=== PATIENT | female | born 1935 | race Caucasian/White ===

== ENCOUNTER 2017-07-16 15:37 | Inpatient (IN) | payer OTHER ==
[~2017-07-16] VITALS: Ht 160 cm; Wt 74.4 kg
[~2017-07-16 15:37] MED LIST: ARTHROTEC 75 T1 EAC1 PO; ATENOLOL 25 MG25 M1 PO; COUMADIN 5 MG TA5 M1 PO; DILTIAZEM 24HR180 M2 PO; DILTIAZEM 24HR240 M2 PO; FLAGYL500 MG PO; GABAPENTIN600 M1 PO; LASIX 20 MG TAB20 MG PO; LEVOTHYROXINE0.05 MG PO; LISINOPRIL-HCT1 EAC2 PO; MIRALAX17 GM PO; NEURONTIN 300300 M1 PO; SYNTHROID125 MC1 PO; Synthroid PO; TEMOVATE30 GM TOP; TENORMIN50 MG PO; TRAMADOL 50 MG50 MG PO
[2017-07-16 15:41] VITALS: BP 138/66
[2017-07-16 16:00] LABS: ABSOLUTE BASOPHILS 0.1 thou/uL (0.0-0.2); ABSOLUTE EOSINOPHILS 0.2 thou/uL (0.0-0.7); ABSOLUTE LYMPHOCYTES 1.1 thou/uL (0.8-5.3); ABSOLUTE MONOCYTES 0.7 thou/uL (0.0-1.2); ABSOLUTE NEUTROPHILS 8.2 thou/uL (1.6-8.1); BASOPHILS 0.8 %; EOSINOPHILS 2.4 %; HEMATOCRIT 38.5 % (37.0-47.0); HEMOGLOBIN 12.9 gm/dL (12.0-15.0); LYMPHOCYTES 10.4 %; MCH 34.1 pg (26.0-34.0); MCHC 33.4 g/dL (28.0-37.0); MCV 102.1 fL (80.0-100.0); MONOCYTES 6.7 %; MPV 8.9 fl. (7.2-11.1); NUCLEATED RBCS 0 /100WBC; PLATELET COUNT* 160 thou/uL (150-400); POLYS 79.7 %; RBC 3.77 mil/uL (4.20-5.00); RDW-CV 15.7 % (10.5-14.5); WBC 10.2 thou/uL (4.0-11.0)
[2017-07-16] MEDS ORDERED: KLOR-CON 1010 MEQ PO (16:00)
[2017-07-16] MEDS ORDERED: FISH OIL 1,001000 M2 PO (16:01)
[2017-07-16] MEDS ORDERED: PROBIOTIC1 EAC4 PO (16:01)
[2017-07-16] MEDS ORDERED: UNICOMPLEX M TA1 TA1 PO (16:02)
[2017-07-16] MEDS ORDERED: CALCIUM 500 +1 EAC5 PO (16:02)
[2017-07-16] MEDS ORDERED: GREEN TEA1 EACH PO (16:02)
[2017-07-16] MEDS ORDERED: COQ-10100 MG PO (16:03)
[2017-07-16] MEDS ORDERED: VITAMIN B-1100 M1 PO (16:03)
[2017-07-16] MEDS ORDERED: [UNRECOGNIZED DRUG - OTHER] PO (16:03)
[2017-07-16] MEDS ORDERED: MAGOX 400400 MG PO (16:04)
[2017-07-16 16:11] LABS: ANION GAP 10 mmol/L (7-16); BUN 24 mg/dL (7-18); CALCIUM 9.4 mg/dL (8.5-10.1); CHLORIDE 103 mmol/L (98-107); CO2 28 mmol/L (21-32); CREATININE 1.1 mg/dL (0.6-1.3); GLUCOSE 139 mg/dL (70-99); POTASSIUM 3.6 mmol/L (3.5-5.1); SODIUM 141 mmol/L (136-145)
[2017-07-16 16:14] LABS: APTT 44.1 Seconds (25.0-31.3); INR 4.2; PROTIME 40.4 Seconds (9.20-11.50)
[2017-07-16 16:18] LABS: ALBUMIN 3.6 g/dL (3.4-5.0); ALKALINE PHOSPHATASE 151 U/L (46-116); LIPASE 108 U/L (73-393); SGOT 36 U/L (15-37); SGPT 39 U/L (30-65); TOTAL BILIRUBIN 0.9 mg/dL (<0.1-1.0); TOTAL PROTEIN 6.8 g/dL (6.4-8.2); TROPONIN-I LEVEL <0.06 ng/mL (<0.06)
[2017-07-16 17:30] LABS: URINE BILIRUBIN NEGATIVE (Negative); URINE BLOOD NEGATIVE (Negative); URINE CLARITY CLEAR; URINE COLOR YELLOW; URINE GLUCOSE-RANDOM NEGATIVE (Negative); URINE KETONES NEGATIVE (Negative); URINE LEUKOCYTES NEGATIVE (Negative); URINE NITRITE NEGATIVE (Negative); URINE PROTEIN NEGATIVE (Negative); URINE SPECIFIC GRAVITY 1.015 (1.005-1.030); URINE UROBILINOGEN 0.2 E.U./dl (0.2-1.0)
[2017-07-16 17:40] LABS: AMP/METHAMP Negative (Negative); BARBITURATES Negative (Negative); BENZODIAZEPINES Negative (Negative); COCAINE Negative (Negative); METHADONE Negative (Negative); OPIATES Negative (Negative); PCP Negative (Negative); THC Negative (Negative)
[2017-07-16 20:03] VITALS: BP 138/60
[2017-07-16 20:30] VITALS: BP 132/62; BP 147/79
[2017-07-16 20:31] VITALS: BP 140/92
[2017-07-16 20:32] VITALS: BP 157/97
[2017-07-16] MEDS ORDERED: NEURONTIN600 MG PO (20:32)
[2017-07-16] MEDS ORDERED: LISINOPRIL20 MG PO (20:34)
[2017-07-16 21:29] LABS: CALCIUM 9.1 mg/dL (8.5-10.1); CREATININE 1.1 mg/dL (0.6-1.3); MAGNESIUM 2.1 mg/dL (1.8-2.4); POTASSIUM 3.7 mmol/L (3.5-5.1)
[2017-07-17] VITALS (7 sets, daily range): BP systolic 76–165; BP diastolic 55–82
[2017-07-17 05:25] LABS: ABSOLUTE BASOPHILS 0.1 thou/uL (0.0-0.2); ABSOLUTE EOSINOPHILS 0.3 thou/uL (0.0-0.7); ABSOLUTE LYMPHOCYTES 1.6 thou/uL (0.8-5.3); ABSOLUTE MONOCYTES 0.8 thou/uL (0.0-1.2); ABSOLUTE NEUTROPHILS 4.3 thou/uL (1.6-8.1); BASOPHILS 0.8 %; EOSINOPHILS 4.6 %; HEMATOCRIT 36.4 % (37.0-47.0); HEMOGLOBIN 12.2 gm/dL (12.0-15.0); LYMPHOCYTES 22.8 %; MCH 33.9 pg (26.0-34.0); MCHC 33.6 g/dL (28.0-37.0); MONOCYTES 11.1 %; MPV 9.1 fl. (7.2-11.1); NUCLEATED RBCS 0 /100WBC; PLATELET COUNT* 151 thou/uL (150-400); POLYS 60.7 %; RDW-CV 15.7 % (10.5-14.5); WBC 7.1 thou/uL (4.0-11.0)
[2017-07-17 05:35] LABS: CALCIUM 8.7 mg/dL (8.5-10.1)
[2017-07-17 05:38] LABS: POTASSIUM 4.8 mmol/L (3.5-5.1)
--- NOTE | 2017-07-17 14:38 | EKG ---
[place] [address] ELECTROCARDIOGRAM REPORT Name: FOURNIERMONICA TYSON Room: [address] IN M.R.#: [id number] Admission: 07/16/17 Attend Phys: Maria Esther Centeno Discharge: 07/17/17 Date of : 33 Report #: [id number] THIS REPORT FOR: //name// [facility] ED Test Date: 2017-07-16 Test Time: 19:42:30 Pat Name: MONICA FOURNIER Department: Room: [facility] Gender: F Probation Agent: CHRISTOPHER : 1935 Requested By: Noreen Lin Order Number: [id number] MD: Steve Gaming Measurements Intervals [place] Rate: 86 P: MD: QRS: 89 QRSD: 92 T: 30 QT: 375 QTc: 449 Interpretive Statements Atrial fibrillation Borderline right axis deviation Borderline ST depression, diffuse leads Baseline wander in lead(s) V5 Compared to ECG 06/24/2015 17:03:49 ST (T wave) deviation now present Ventricular premature complex(es) no longer present Electronically Signed On 07-17-2017 14:37:58 COMPUTER AIDED DESIGN DRAFTER by Steve Gaming [email or web address] <ELECTRONICALLY SIGNED> By: Steve Gaming MD, FACC 07/17/17 1437 41 41 Steve Gaming MD, FAC /EPI
--- NOTE | 2017-07-20 09:49 | CON ---
[address] [address] CONSULTATION Name: MONICA FOURNIER Room: [address] IN M.R.#: [id number] Admission: 07/16/17 Attend Phys: Maria Esther Centeno Discharge: 07/17/17 Date of : 33 Report #: [id number] THIS REPORT FOR: //name// CC: Josh Saucedo PRIMARY CARE PHYSICIAN: Dr. Josh Townsend. PRODUCE WRAPPER: Dr. Audi Mtz. CHIEF COMPLAINT: Shortness of breath. HISTORY OF PRESENT ILLNESS: The patient is an 81-year-old female with a history of rate controlled atrial fibrillation, presented with shortness of breath and apparently has had some presyncope. Her blood pressure was elevated at home. She denies palpitations, heart racing or skipping. She is as noted above in persistent atrial fibrillation. She denies neuro symptoms, slurred speech, numbness or weakness. She was evaluated with a CT scan of the chest to rule out pulmonary embolus and pulmonary pathology, which was unremarkable and negative for pulmonary embolus. She has ruled out for an acute myocardial infarction. With her shortness of breath, she denies chest pain or pressure. She was actually scheduled for an outpatient Lexiscan stress test next week. In addition to her atrial fibrillation, she has high blood pressure, but she is not diabetic and she does not have high cholesterol. PVD: Denies any history of carotid vascular disease or peripheral vascular disease. HOME MEDICATIONS: Atenolol 50 mg p.o. b.i.d., diclofenac p.r.n., Lasix 40 mg daily, Synthroid 112 mcg daily, lisinopril 20 mg p.o. b.i.d., potassium chloride 10 mEq daily, warfarin 5 mg daily, CoQ10, vitamin B, gabapentin. REVIEW OF SYSTEMS: CENTRAL NERVOUS SYSTEM: No seizure or paralysis. GENERAL: No weight loss or fevers. RESPIRATORY: Positive shortness of breath, no cough, no sputum production. No asthma. CARDIOVASCULAR: No PND, no edema. ENDOCRINE: Positive thyroid disease. There is diabetes. GENITOURINARY: No dysuria or hematuria. HEMATOLOGIC: Positive anemia. ALLERGIES: No seasonal allergies. [place] [address] CONSULTATION Name: MONICA FOURNIER Room: [address]#: [id number] Admission: 07/16/17 Attend Phys: Maria Esther Centeno Discharge: 07/17/17 Date of : 33 Report #: [id number] PSYCHIATRIC: No depression or anxiety. MUSCULOSKELETAL: Positive arthritis. SKIN: No rashes. EYES: She does use glasses: PHYSICAL EXAMINATION: VITAL SIGNS: Blood pressure is 167/78, pulse is 67. GENERAL: This is a pleasant elderly female. LUNGS: Clear to auscultation bilaterally. CARDIOVASCULAR: Irregular. I cannot hear a murmur. ABDOMEN: Nontender. EXTREMITIES: There is no peripheral edema. NEUROLOGIC: There are no focal deficits. PSYCHIATRIC: The patient has appropriate mood and affect. LABORATORY DATA: Electrocardiogram demonstrated atrial fibrillation, rate of 86. No diagnostic ST segment abnormalities. Two PVCs were noted. Hemoglobin is 12.2, white blood cell count 7.1, platelet count is 151,000. Her sodium is 143, potassium 4.8, chloride 107, BUN is 23, creatinine is 1.0. Troponin I was 0.06. There is no BNP. CTA was negative for pulmonary embolus. Chest x-ray reveals cardiomegaly without failure. CT of the brain, no evidence of intracranial hemorrhage or acute abnormality. IMPRESSION: 1. Dyspnea. I suspect this is multifactorial, but ruling out coronary artery disease with a stress test is appropriate, which can be done as an outpatient. She has ruled out for an acute infarction. 2. Chronic diastolic heart failure. She does not have evidence of volume overload on x-ray or CTA of the chest. I would continue with current dose of diuretics. 3. Hypertension. Her blood pressure is elevated, I would recommend increasing her atenolol to 75 mg dosing. This may improve her heart rate control and atrial fibrillation as well. FOLLOWUP: She will follow up with Dr. Mtz per routine. <ELECTRONICALLY SIGNED> By: Steve Gaming MD, FACC 07/20/17 0949 1035 1520Steve Gaming MD, FACC /nt
[2017-10-25] MEDS ORDERED: NORCO 5-325 TA1 EACH PO (09:26)
== END 2017-07-17 14:26 | disposition home health service (06) | DRG 309 ==
LOC: M.ERS 15:37 → M.2W 18:14 → M.TBA-ER 18:14 → M.2W 20:12
PROVIDERS: Physician Assistant; ADMIT Internal Medicine
DX: I49.9 Cardiac arrhythmia, unspecified (principal); I50.32 Chronic diastolic (congestive) heart failure; D68.69 Other thrombophilia; R55 Syncope and collapse; I10 Essential (primary) hypertension; Z96.643 Presence of artificial hip joint, bilateral; M19.90 Unspecified osteoarthritis, unspecified site; Z96.653 Presence of artificial knee joint, bilateral; I48.2 Chronic atrial fibrillation; Z91.040 Latex allergy status; Z88.8 Allergy status to other drugs, medicaments and biological substances

== ENCOUNTER → 2017-08-09 | Outpatient (CLI) | payer OTHER ==
[~2017-08-09] MED LIST changes: +ADULT LOW DOSE81 MG PO; +AMOXICILLIN 50500 MG PO; +ARICEPT 5 MG TAB5 MG PO; +ATENOLOL 100MG100 MG PO; +ATORVASTATIN CA40 MG PO; +CALCIUM 500 +1 EAC5 PO; +CARDURA4 MG PO; +COQ-10100 MG PO; +ELIQUIS2.5 MG PO; +FISH OIL 1,001000 M2 PO; +FLOXIN10 M1 OTIC; +GREEN TEA1 EACH PO; +KLOR-CON 1010 MEQ PO; +LISINOPRIL20 MG PO; +MAGOX 400400 MG PO; +NEURONTIN600 MG PO; +NORCO 5-325 TA1 EACH PO; +PROBIOTIC1 EAC4 PO; +PROTONIX40 M1 PO; +SYNTHROID150 MCG PO; +UNICOMPLEX M TA1 TA1 PO; +VITAMIN B-1100 M1 PO; +[UNRECOGNIZED DRUG - OTHER] PO
--- NOTE | 2017-08-09 18:04 | CARDNUC ---
[place] [address] CARDIAC NUCLEAR IMAGING REPORT Name: SHANTANUMONICA Mackenzie Room: [facility]#: [id number] Admission: 08/09/17 Attend Phys: Geoffrey Del Castillo, Discharge: Date of : 33 Date of Service: 08/09/17 1804 Report #: [id number] THIS REPORT FOR: //name// APPROVED REPORT Exam: Nuclear Stress Test Indication: Chest pain Patient Location: Out-Patient Stress Tech: Claudia Sutton Stress Nurse: Marylu Veras RN Ht: 5 ft 4 in Wt: 170 lbs BSA: 1.83 m2 BMI: 29.17 Medical History Medical History: HTN Medications: KCL, mg+, lisinopril, atenolol, furosemide, warfarin Allergies: No known drug allergies Cardiac Risk Factors: Age, HTN Exercise History: Sedentary Meds Held (24 hrs): atenolol Stress Test Details Stress Test: Pharmacologic stress testing performed using 0.4 mg of regadenoson per 5 mL given IV over 10 seconds. Reason for pharmacologic stress test: physical limitation. HR Resting HR: 78 bpm Max Heart Rate (APMHR): 138 bpm Max HR Achieved: 86 bpm Target HR (85% APMHR): 117 bpm % of APMHR: 62 Recovery HR: 83 bpm BP Resting BP: 148/93 mmHg Max BP: 140/73 mmHg ECG Resting ECG: Atrial Fibrillation Stress ECG: Atrial Fibrillation ST Change: None Arrhythmia: None Recovery ECG: Atrial Fibrillation Recovery ST Change: [place] [address] CARDIAC NUCLEAR IMAGING REPORT Name: MONICA FOURNIER Room: [facility]#: [id number] Admission: 08/09/17 Attend Phys: Geoffrey Del Castillo, Discharge: Date of : 33 Date of Service: 08/09/17 1804 Report #: [id number] Recovery Arrhythmia: None Clinical Reason for Termination: Completed protocol Stress Symptoms: None Exercise duration: 0 min sec Exercise capacity: 1.0 METs The patient had no significant symptoms with Lexiscan infusion. Stress ECG Conclusion The baseline 12-lead electrocardiogram showed atrial fibrillation with a controlled ventricular response rate. There were no significant ST or T wave abnormalities noted. EKGs obtained during and post Lexiscan stress show atrial fibrillation with no significant ST or T wave changes when compared to baseline. There were no significant stress-induced arrhythmias. NM EXAM: Myocardial Perfusion REST/STRESS Imaging Protocol: Rest Tc-99m/Stress Tc-99m 1 day Resting Data Rest SPECT myocardial perfusion imaging was performed in supine position 30 minutes following the intravenous injection of 11.2 mCi of Tc-99m Sestamibi. Time of rest injection: 1305 Time of rest imagin The images were gated to evaluate regional wall motion and calculate left ventricular ejection fraction. Administration Route: IV Administration Site: Right AC Pharmacologic Stress Pharmacologic stress test was performed by injecting Regadenoson 0.4 mg IV push followed by the intravenous injection of 32.8 mCi of Tc-99m Sestamibi. Time of stress injection: 1455 Time of stress imagin Administration Route: IV Administration Site: Right AC Heart Rate at time of stress injection: 86 bpm. Gated Stress SPECT was performed 40 minutes after stress injection. The images were gated to evaluate regional wall motion and calculate [place] [address] CARDIAC NUCLEAR IMAGING REPORT Name: MONICA FOURNIER Room: [facility]#: [id number] Admission: 08/09/17 Attend Phys: Geoffrey Del Castillo, Discharge: Date of : 33 Date of Service: 08/09/17 1804 Report #: [id number] Study Quality Study: Good Artifact: No artifact Study Data At rest, the left ventricular ejection fraction was 63%.. Post stress, the left ventricular ejection was 60%.. TID = 1.10. Perfusion Normal left ventricular perfusion. Wall Motion Normal left ventricular wall motion. Nuclear Conclusion ECG Findings: negative for ischemia Clinical Findings: negative for ischemia Nuclear Findings: negative for ischemia Exercise Capacity: not assessed Left Ventricular Function: normal Risk Study: low Myocardial perfusion images show no significant defects to suggest infarct or ischemia. Left ventricular systolic function is normal. His is a low risk study. <Conclusion> The baseline 12-lead electrocardiogram showed atrial fibrillation with a controlled ventricular response rate. There were no significant ST or T wave abnormalities noted. EKGs obtained during and post Lexiscan stress show atrial fibrillation with no significant ST or T wave changes when compared to baseline. There were no significant stress-induced arrhythmias. <ELECTRONICALLY SIGNED> By: Geoffrey Del Castillo MD, [facility] 08/09/171803 03 03 Geoffrey Del Castillo MD, FACC /INF
== END ==
LOC: M.NUC 07-14 10:36 → M.CRD 07-30 13:00 → M.NUC 07-30 13:00
DX: I10 Essential (primary) hypertension (principal)

== ENCOUNTER → 2017-09-23 | Outpatient (CLI) | payer OTHER | LOC: M.ULTRA 09:00 | DX: R19.09 Other intra-abdominal and pelvic swelling, mass and lump (principal) ==

== ENCOUNTER 2017-09-24 18:48 | Emergency (ER) | payer OTHER ==
[~2017-09-24] VITALS: Ht 160 cm; Wt 72.6 kg
[~2017-09-24 18:48] MED LIST changes: -ADULT LOW DOSE81 MG PO; -AMOXICILLIN 50500 MG PO; -ARICEPT 5 MG TAB5 MG PO; -ATENOLOL 100MG100 MG PO; -ATORVASTATIN CA40 MG PO; -CARDURA4 MG PO; -ELIQUIS2.5 MG PO; -FLOXIN10 M1 OTIC; -NORCO 5-325 TA1 EACH PO; -PROTONIX40 M1 PO; -SYNTHROID150 MCG PO
[2017-09-24] MEDS ORDERED: ELIQUIS2.5 MG PO (19:09)
[2017-09-24] MEDS ORDERED: AMOXICILLIN 50500 MG PO (19:37)
[2017-09-24] MEDS ORDERED: FLOXIN10 M1 OTIC (19:41)
[2017-09-24 19:56] VITALS: BP 117/70
[2017-10-25] MEDS ORDERED: NORCO 5-325 TA1 EACH PO (09:26)
== END 2017-09-24 19:56 | disposition home or self-care (01) ==
LOC: M.ERS 18:48
DX: H66.91 Otitis media, unspecified, right ear (principal); H60.91 Unspecified otitis externa, right ear; H72.91 Unspecified perforation of tympanic membrane, right ear; I10 Essential (primary) hypertension; I48.91 Unspecified atrial fibrillation; M19.90 Unspecified osteoarthritis, unspecified site

== ENCOUNTER → 2017-10-25 | Day surgery (SDC) | payer OTHER ==
[~2017-10-25] MED LIST changes: +ADULT LOW DOSE81 MG PO; +AMOXICILLIN 50500 MG PO; +ARICEPT 5 MG TAB5 MG PO; +ATENOLOL 100MG100 MG PO; +ATORVASTATIN CA40 MG PO; +CARDURA4 MG PO; +ELIQUIS2.5 MG PO; +FLOXIN10 M1 OTIC; +NORCO 5-325 TA1 EACH PO; +PROTONIX40 M1 PO; +SYNTHROID150 MCG PO
[2017-10-25 06:54] LABS: HEMATOCRIT 41.6 % (37.0-47.0); HEMOGLOBIN 13.8 gm/dL (12.0-15.0); MCH 33.6 pg (26.0-34.0); MCHC 33.2 g/dL (28.0-37.0); MCV 101.3 fL (80.0-100.0); MPV 9.1 fl. (7.2-11.1); RBC 4.1 mil/uL (4.20-5.00); RDW-CV 15.7 % (10.5-14.5); WBC 6.3 thou/uL (4.0-11.0)
[2017-10-25 07:03] LABS: CALCIUM 9.6 mg/dL (8.5-10.1); CREATININE 1.1 mg/dL (0.6-1.3); POTASSIUM 3.9 mmol/L (3.5-5.1)
--- NOTE | 2017-10-25 17:55 | EKG ---
[place] [address] ELECTROCARDIOGRAM REPORT Name: FOURNIER,MONICA M Room: [facility]#: [id number] Admission: 10/25/17 Attend Phys: Mackenzie Henriquez Discharge: Date of : 33 Report #: [id number] THIS REPORT FOR: //name// [facility] Test Date: 2017-10-25 Test Time: 07:25:24 Pat Name: MONICA FOURNIER Department: Room: Gender: F Bobbin Coil Winder: HIRAM : 1935 Requested By: Sabino Quick Order Number: [id number] Reading MD: Geoffrey Del Castillo Measurements Intervals [place] Rate: 65 P: ND: QRS: 55 QRSD: 101 T: 96 QT: 432 QTc: 450 Interpretive Statements Atrial fibrillation Probable LVH with secondary repol abnrm Compared to ECG 07/16/2017 19:42:30 ST (T wave) deviation no longer present 4 listed I don't believe so wide was going will increase the IV Abdomen: All was was going outpatient Electronically Signed On 10-25-2017 17:55:36 CDT by Geoffrey Del Castillo [email or web address] <ELECTRONICALLY SIGNED> By: Geoffrey Del Castillo MD, FACC 10/25/17 1755 0725 0725 Geoffrey Del Castillo MD, FAC /EPI
--- NOTE | 2017-11-03 13:41 | OP ---
[address] [address] OPERATIVE REPORT Name: MONICA FOURNIER Room: [facility]#: [id number] Admission: 10/25/17 Attend Phys: Mackenzie Henriquez Discharge: Date of : 33 Report #: [id number] THIS REPORT FOR: //name// CC: Cathie Townsend DATE OF SERVICE: 10/25/2017 PREOPERATIVE DIAGNOSIS: Right inguinal hernia. POSTOPERATIVE DIAGNOSIS: Right inguinal hernia. OPERATION: Laparoscopic repair of right inguinal hernia with mesh. SURGEON: Sabino Quick MD ANESTHESIA: General. ESTIMATED BLOOD LOSS: Minimal. SPECIMEN: None. DESCRIPTION OF PROCEDURE: After informed consent was obtained, the patient was brought to the operating room and placed supine. SCDs were placed and working, preoperative antibiotics were administered, general anesthesia was induced. The abdomen was prepped and draped in the usual sterile fashion. A 10 mm incision was made below the umbilicus. Fascia was incised on the right side. Spacemaker/dissector was inserted. The area was insufflated with CO2. Two 5 mm ports were placed in the midline. I dissected out medially at the pubic bone. I then dissected out laterally. I identified the round ligament. She had an indirect hernia and this was carefully peeled back. I then inserted a medium Bard 3DMax mesh. I secured it using a suture passer and 2-0 Ethibond suture in the midline to keep the mesh from moving. The area was then instilled with 10 mL of 0.5% Marcaine solution. The fascia at the umbilicus was closed with a [id number] 0 Vicryl. Skin was closed with 4-0 Monocryl. Incisions were sealed with Dermabond. COMPLICATIONS: None. DISPOSITION: The patient was taken to the recovery in satisfactory condition. <ELECTRONICALLY SIGNED> By: Sabino Quick MD 11/03/17 1341 0917 1036Sabino Quick MD /nt
== END | disposition home or self-care (01) ==
LOC: M.SUR 06:34
PROVIDERS: Surgery
DX: K40.90 Unilateral inguinal hernia, without obstruction or gangrene, not specified as recurrent (principal); I48.2 Chronic atrial fibrillation; Z79.899 Other long term (current) drug therapy; Z79.01 Long term (current) use of anticoagulants; Z98.890 Other specified postprocedural states

== ENCOUNTER → 2017-12-30 | Outpatient (CLI) | payer OTHER | LOC: M.MRI 13:07 | DX: M19.012 Primary osteoarthritis, left shoulder (principal); M75.52 Bursitis of left shoulder; M75.02 Adhesive capsulitis of left shoulder ==

== ENCOUNTER 2018-01-27 18:24 | Emergency (ER) | payer OTHER ==
[~2018-01-27] VITALS: Ht 160 cm; Wt 71.2 kg
[~2018-01-27 18:24] MED LIST changes: -ADULT LOW DOSE81 MG PO; -ARICEPT 5 MG TAB5 MG PO; -ATENOLOL 100MG100 MG PO; -ATORVASTATIN CA40 MG PO; -CARDURA4 MG PO; -PROTONIX40 M1 PO; -SYNTHROID150 MCG PO
[2018-01-27 19:04] LABS: ABSOLUTE BASOPHILS 0.1 thou/uL (0.0-0.2); ABSOLUTE EOSINOPHILS 0.3 thou/uL (0.0-0.7); ABSOLUTE LYMPHOCYTES 1.6 thou/uL (0.8-5.3); ABSOLUTE MONOCYTES 0.7 thou/uL (0.0-1.2); ABSOLUTE NEUTROPHILS 4.9 thou/uL (1.6-8.1); BASOPHILS 1.2 %; HEMATOCRIT 40.6 % (37.0-47.0); HEMOGLOBIN 13.6 gm/dL (12.0-15.0); LYMPHOCYTES 21.5 %; MCH 34.6 pg (26.0-34.0); MCHC 33.5 g/dL (28.0-37.0); MCV 103.3 fL (80.0-100.0); MONOCYTES 8.9 %; MPV 9.5 fl. (7.2-11.1); NUCLEATED RBCS 0 /100WBC; PLATELET COUNT* 128 thou/uL (150-400); POLYS 64.4 %; RBC 3.93 mil/uL (4.20-5.00); RDW-CV 14.7 % (10.5-14.5); WBC 7.6 thou/uL (4.0-11.0)
[2018-01-27 19:10] LABS: ANION GAP 4 mmol/L (7-16); BUN 26 mg/dL (7-18); CALCIUM 9.1 mg/dL (8.5-10.1); CHLORIDE 102 mmol/L (98-107); CO2 29 mmol/L (21-32); CREATININE 1.2 mg/dL (0.6-1.3); GLUCOSE 96 mg/dL (70-99); SODIUM 135 mmol/L (136-145)
[2018-01-27 19:17] LABS: ALBUMIN 3.6 g/dL (3.4-5.0); ALKALINE PHOSPHATASE 136 U/L (46-116); SGOT 39 U/L (15-37); SGPT 44 U/L (30-65); TOTAL BILIRUBIN 1.1 mg/dL (<0.1-1.0); TOTAL PROTEIN 6.9 g/dL (6.4-8.2); TROPONIN-I LEVEL <0.06 ng/mL (<0.06)
[2018-01-27 20:37] LABS: URINE BILIRUBIN NEGATIVE (Negative); URINE BLOOD NEGATIVE (Negative); URINE CLARITY CLEAR; URINE COLOR YELLOW; URINE GLUCOSE-RANDOM NEGATIVE (Negative); URINE KETONES NEGATIVE (Negative); URINE LEUKOCYTES-REFLEX NEGATIVE (Negative); URINE NITRITE-REFLEX NEGATIVE (Negative); URINE PROTEIN NEGATIVE (Negative); URINE SPECIFIC GRAVITY <= 1.005 (1.005-1.030); URINE UROBILINOGEN 0.2 E.U./dl (0.2-1.0)
[2018-01-27 21:24] VITALS: BP 165/100
--- NOTE | 2018-01-28 10:50 | EKG ---
[place] [address] ELECTROCARDIOGRAM REPORT Name: MONICA FOURNIER Room: [facility]#: [id number] Admission: 01/27/18 Attend Phys: Discharge: 01/27/18 Date of : 33 Report #: [id number] THIS REPORT FOR: //name// [facility] ED Test Date: 2018-01-27 Test Time: 18:34:09 Pat Name: MONICA FOURNIER Department: Room: Gender: F Heat Sealing Machine Operator: TEE : 1935 Requested By: Cathie Berg Order Number: [id number] MD: Suresh Castro Measurements Intervals [place] Rate: 79 P: OR: QRS: 103 QRSD: 153 T: -1 QT: 454 QTc: 521 Interpretive Statements Atrial fibrillation RBBB and LPFB Compared to ECG 10/25/2017 07:25:24 Left posterior fascicular block now present Right bundle-branch block now present Electronically Signed On 01-28-2018 10:49:50 CDT by Suresh Castro [email or web address] <ELECTRONICALLY SIGNED> By: Suresh Castro MD, [facility] 01/28/18 1049 1834 1834 Suresh Castro MD, [facility] /EPI
== END 2018-01-27 21:27 | disposition home or self-care (01) ==
LOC: M.ERS 18:24
PROVIDERS: Nurse Practitioner Family
DX: I10 Essential (primary) hypertension (principal); R42 Dizziness and giddiness; I48.91 Unspecified atrial fibrillation; M19.90 Unspecified osteoarthritis, unspecified site; Z96.643 Presence of artificial hip joint, bilateral; Z96.653 Presence of artificial knee joint, bilateral; Z88.8 Allergy status to other drugs, medicaments and biological substances

== ENCOUNTER 2018-01-28 22:05 | Inpatient (IN) | payer OTHER ==
[~2018-01-28] VITALS: Ht 160 cm; Wt 71.2 kg
[2018-01-28 22:19] VITALS: BP 201/123
[2018-01-28 22:40] LABS: ABSOLUTE BASOPHILS 0.1 thou/uL (0.0-0.2); ABSOLUTE EOSINOPHILS 0.4 thou/uL (0.0-0.7); ABSOLUTE LYMPHOCYTES 1.9 thou/uL (0.8-5.3); ABSOLUTE MONOCYTES 0.8 thou/uL (0.0-1.2); ABSOLUTE NEUTROPHILS 4.2 thou/uL (1.6-8.1); BASOPHILS 1.3 %; EOSINOPHILS 5.4 %; HEMATOCRIT 40.8 % (37.0-47.0); HEMOGLOBIN 13.6 gm/dL (12.0-15.0); LYMPHOCYTES 25.5 %; MCH 34.4 pg (26.0-34.0); MCHC 33.4 g/dL (28.0-37.0); MCV 102.9 fL (80.0-100.0); MONOCYTES 10.7 %; MPV 9.4 fl. (7.2-11.1); NUCLEATED RBCS 0 /100WBC; PLATELET COUNT* 133 thou/uL (150-400); POLYS 57.1 %; RBC 3.97 mil/uL (4.20-5.00); WBC 7.3 thou/uL (4.0-11.0)
[2018-01-28 22:49] LABS: APTT 31.6 Seconds (25.0-31.3); INR 1.2
[2018-01-28 22:54] LABS: ANION GAP 4 mmol/L (7-16); BUN 24 mg/dL (7-18); CALCIUM 9.5 mg/dL (8.5-10.1); CHLORIDE 103 mmol/L (98-107); CO2 31 mmol/L (21-32); CREATININE 1.2 mg/dL (0.6-1.3); GLUCOSE 105 mg/dL (70-99); POTASSIUM 3.8 mmol/L (3.5-5.1); SODIUM 138 mmol/L (136-145)
[2018-01-28 23:11] LABS: ALBUMIN 3.7 g/dL (3.4-5.0); ALKALINE PHOSPHATASE 150 U/L (46-116); CK-MB MASS 3.5 ng/mL (<0.5-3.6); NT-PRO BRAIN NAT PEPTIDE 2778 pg/mL (<300); SGOT 37 U/L (15-37); SGPT 41 U/L (30-65); TOTAL BILIRUBIN 0.8 mg/dL (<0.1-1.0); TOTAL PROTEIN 7.2 g/dL (6.4-8.2); TROPONIN-I LEVEL <0.06 ng/mL (<0.06)
[2018-01-29] VITALS (9 sets, daily range): BP systolic 133–187; BP diastolic 71–118
[2018-01-29 00:01] LABS: URINE BILIRUBIN NEGATIVE (Negative); URINE BLOOD TRACE (Negative); URINE CLARITY CLEAR; URINE COLOR YELLOW; URINE GLUCOSE-RANDOM NEGATIVE (Negative); URINE KETONES NEGATIVE (Negative); URINE LEUKOCYTES-REFLEX NEGATIVE (Negative); URINE NITRITE-REFLEX NEGATIVE (Negative); URINE PROTEIN NEGATIVE (Negative); URINE SPECIFIC GRAVITY <= 1.005 (1.005-1.030); URINE UROBILINOGEN 0.2 E.U./dl (0.2-1.0)
--- NOTE | 2018-01-29 02:19 | NUR ---
CALL TO DOCTOR NATAN REGAURDING BLOOD PRESSURE MED AND PATIENT'S HIGH BLOOD PRESSURE, SEE ORDERS.
--- NOTE | 2018-01-29 02:31 | NUR ---
PATIENT O2 FELL TO 88 ON ROOM AIR, PATIENT PLACED ON 2 LITERS NC. O2 LEVELS RETURNED TO NORMAL.
--- NOTE | 2018-01-29 03:14 | NUR ---
DOCTOR BENJAMIN NOTIFIED OF PATIENT'S BLOOD PRESSURE. DOCTOR GAVE ORDER TO NOT GIVE CARDIZEM AND GIVE HOME DOSE OF LISINOPRIL.
--- NOTE | 2018-01-29 05:03 | NUR ---
PATIENT IS RESTING IN BED, NO ACUTE CHANGES. PATIENT IS NOT SHOWING SIGNS OF DISTRESS. FALL PRECAUTIONS IN PLACE, BED ALARM ON, CALL LIGHT WITHIN REACH, HOURLY ROUNDING OBSERVED.
--- NOTE | 2018-01-29 09:22 | NUR ---
ASSUMED CARE OF PT THIS AM AROUND 07- SOCIAL SERVICE ASSISTANT IN PLACE ORDERED, TRACING A-FIB/RATE CONTROLED WITH BBB- UPON ASSESSMENT PT NOTED TO BE RESTING IN BED- PT A&O X1, OCCASIONAL APHASIA/WORD SEARCH NOTED- PLEASENTLY CONFUSED- CONTINENT VS INCONTINENT OF BOWEL AND BLADDER- EXT ASSIST WITH REDIRECTION NEEDED- ABDOMEN SOFT/ROUND/NON-TENDER, BS X4 QUADS- REPORTS LAST BM 01/28/18- IV NOTED TO RIGHT AC INTACT AND SL- TRACE EDEMA NOTED TO BLE- SET UP WITH MEALS WITH FAIR PO INTAKE NOTED- MRA/MRI COMPLETED THIS AM ORDERED, RESULTS IN View the Space TO REVIEW-SCD'S IN PLACE INDICATED- PT DENIES ANY C/O PAIN/DISCOMFORT- CALL LIGHT AND PERSONAL BELONGING WITH IN REACH- HOURLY ROUNDS IN PLACE R/T SAFETY/NEEDS- BED ALARM IN PLACE AND WORKING FOR PT SAFETY- ALL NEEDS MET AT THIS TIME-WCTM
[2018-01-29 09:42] LABS: CHOLESTEROL 163 mg/dL (<200); HDL CHOLESTEROL 51 mg/dL (>40); LDL CHOLESTEROL 100 mg/dL (<100); TC:HDL 3.2 Ratio (Not establshd); TRIGLYCERIDE 62 mg/dL (<150); VLDL 12 mg/dL (<40)
[2018-01-29 09:53] LABS: SERUM ASSESSMENT Clear
--- NOTE | 2018-01-29 12:41 | EKG ---
[place] [address] ELECTROCARDIOGRAM REPORT Name: MONICA FOURNIER Room: [address] IN [facility].#: [id number] Admission: 01/28/18 Attend Phys: Ronda Nugent MD Discharge: Date of : 33 Report #: [id number] THIS REPORT FOR: //name// [facility] ED Test Date: 2018-01-28 Test Time: 22:30:40 Pat Name: MONICA FOURNIER Department: Room: Gender: F Top Former: : 1935 Requested By: Yasir Peraza Order Number: [id number] MD: Steve Gaming Measurements Intervals [place] Rate: 75 P: [place]: QRS: 106 QRSD: 153 T: -19 QT: 472 QTc: 528 Interpretive Statements Pacemaker spikes or artifacts Atrial fibrillation RBBB and LPFB Compared to ECG 01/27/2018 18:34:09 No significant changes Electronically Signed On 01-29-2018 12:41:35 CDT by Steve Gaming [email or web address] <ELECTRONICALLY SIGNED> By: Steve Gaming MD, FAC 01/29/18 1241 29 29 Steve Gaming MD, [facility] /EPI
--- NOTE | 2018-01-29 16:32 | NUR ---
PT CATRINA RESTING IN BED- CLOTHING SUPERVISOR IN PLACE ORDERED, TRACING A-FIB WITH BBB- BOYFRIEND AT SIDE VISITING- PT CONTINUES TO BE CONFUSSED WITH SLOW RESPONSES NOTED- CAROTID US COMPLETED ORDERD WITH RESULTS SENT TO VIA YOU CALL WITH NO NEW ORDERS NOTED- HERE TO ASSESS THIS SHIFT WITH PLANS FOR F/U MRI ON WEDNESDAY, EEG AND ASPIRIN DAILY PER NOTES-ECHO ORDERED THIS SHIFT WELL- TROPS REMAIN NEGATIVE THIS SHIFT- BM REPORTED THIS SHIFT- WORKING WITH ALL THERAPIES THIS SHIFT ORDERED, TOLERATING WELL- IV REMIANS INTACT TO RIGHT AC, SL AND FLUSHING WELL- NO C/O PAIN/DISCOMFORT NOTED- GOOD PO INTAKE NOTED WITH MEASL- ST HERE TO ASSESS WITH NO SWALLOW ISSUES REPORTED- CALL LIGHT AND PERSONAL BELONGINGS WITH IN REACH- BED ALARM IN PLACE AND WORKING FOR PT SAFETY- ALL NEEDS MET AT THIS TIME-GUSTAVO
[2018-01-30] VITALS: BP 167/98
[2018-01-30 04:00] VITALS: BP 179/101
--- NOTE | 2018-01-30 04:39 | NUR ---
PT UNABLE TO STATE NAME. PT CONFUSED. UP WITH WALKER. AFIB ON THE MONITOR. VITALS WNL. SEE MAR. SEE CHARTING. FALL PRECAUTIONS IN PLACE. HOURLY ROUNDING FOR SAFETY. 02 AT HS FOR LOW O2 SAT.
[2018-01-30 06:10] LABS: HEMATOCRIT 39.5 % (37.0-47.0); HEMOGLOBIN 13.1 gm/dL (12.0-15.0); MCH 34.3 pg (26.0-34.0); MCHC 33.2 g/dL (28.0-37.0); MCV 103.1 fL (80.0-100.0); MPV 9.7 fl. (7.2-11.1); RBC 3.83 mil/uL (4.20-5.00); RDW-CV 14.9 % (10.5-14.5); WBC 7.5 thou/uL (4.0-11.0)
[2018-01-30 06:16] LABS: ALBUMIN 3.2 g/dL (3.4-5.0); CALCIUM 9.2 mg/dL (8.5-10.1); POTASSIUM 3.4 mmol/L (3.5-5.1); TOTAL BILIRUBIN 1.2 mg/dL (<0.1-1.0); TOTAL PROTEIN 6.2 g/dL (6.4-8.2)
[2018-01-30 07:48] VITALS: BP 148/59
--- NOTE | 2018-01-30 08:50 | NUR ---
ASSUMED CARE OF PT THIS AM AROUND 07- GREY IRON MOLDER IN PLACE ORDERED, TRACING A-FIB/RATE CONTROLED WITH BBB- UPON ASSESSMENT PT NOTED TO BE RESTING IN BED, EYES CLOSED- EASILY ARROUSABLE- PT REMAINS A&O X1 WITH NOTED CONFUSION, WORD FINDING HARD AT TIMES- ASSIST X1 WITH TRANSFERS USING RW- CONTINENT VS INCONTINENT OF BOWEL AND BLADDER- SET UP WITH MEALS REQUIRED WITH GOOD PO INTAKE NOTED- LCTA, RESP EVEN AND UN-LABORED- VSS, O2 SAT 97% ON RA- ABDOMEN SOFT/ROUND/NON-TENDER, BS X4 QUADS- LAST BM NOTED 01/29/18- IV NOTED TO RIGHT AC INTACT AND SL- PT DENIES ANY C/O PAIN/DISCOMFORT AT THIS TIME- CALL LIGHT AND PERSONLA BELONGINGS WITH IN REACH- HOURLY ROUNDS IN PLACE R/T SAFETY/NEEDS- BED ALARM IN PLACE AND WORKING FOR PT SAFETY- ALL NEEDS MET AT THIS TIME-WCTM
[2018-01-30 12:18] VITALS: BP 148/92
[2018-01-30 15:53] VITALS: BP 158/80
--- NOTE | 2018-01-30 16:05 | NUR ---
PT CURRENLTY RESTING IN BED SIDE RECLINER-CONFUSSION CONTIUES- ENGRAVING PLATE MAKER IN PLACE ORDERED, TRACING A-FIB/RATE CONTROLED- IV TO RIGHT AC INTACT AND SL, FLUSHING WELL- PT UP TO CHAIR THIS SHIFT WITH MEALS, TOLERATING WELL-GOOD PO INTAKE NTOED WITH MEALS-SON HERE TO VISIT ALONG WITH BOYFRIEND THIS SHIFT- MRI NOTED TO BE ORDERED FOR Wednesday01/31/18- FOLIC AND VIT B DRAWN THIS SHIFT AND NOTED TO BE WNL- EEG COMPLETED THIS AM ORDERED, AWAITTING RESULTS- CALL LIGHT AND PERSONAL BELONGINGS WITH IN REACH- BED/CHAIR ALARMS IN PLACE AND WORKING FOR PT SAFETY- FRQUENT CHECKS IN PLACE R/T SAFETY/NEEDS- ALL NEEDS MET AT THIS TIME-WCTM
[2018-01-30 19:40] VITALS: BP 175/98
[2018-01-31] VITALS: BP 163/92
[2018-01-31 04:00] VITALS: BP 176/101
[2018-01-31 08:00] VITALS: BP 160/77
--- NOTE | 2018-01-31 10:43 | NUR ---
ASSUMED RESPONSIBILITY OF PT THIS AM PT IS ALERT AND ORIENTED BUT FORGETFUL AND CONFUSED WITH CERTAIN THINGS PT CANNOT FIND HER WORDS AT TIMES BLOOD PRESSURE ELEVATED AT 160/77 AFIB ON THE MONITOR CHRONIC MRI/MRA TO BE DONE TODAY REPEAT WITH DR CARTWRIGHT PT IS ANXIOUS CALL LIGHT IN REACH
[2018-01-31 12:09] VITALS: BP 137/77
--- NOTE | 2018-01-31 14:29 | NUR ---
CM SPOKE TO THE PATIENT TO DISCUSS HOME SITUATION, DISCHARGE PLANNING, AND TO INFORM OF THE ROLE OF CM. PATIENT ALERT, AND ORIENTED, BUT FORGETFUL. PATIENT ALSO HAVING SOME DIFFICULTY FINDING WORDS. PATIENT RESIDES AT [facility] ALONE IN APARTMENT. 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 PATIENT USES A WALKER FOR MOBILITY AND BROUGHT IT WITH HER TO THE HOSPITAL. CM CONTACTED PATIENT'S SON NICOLE TO CONFIRM ALL INFORMATION. NICOLE INFORMS THAT THE PATIENT RESIDES AT THE [facility], AND CONTINUES TO DRIVE. NICOLE INFORMS THAT HE 'DOES NOT BELIEVE THAT THE PATIENT SHOULD BE DRIVING, BUT WILL NOT LISTEN TO HIM'. CM INFORMED PATIENT'S SON THAT DR BENJAMIN IS RECOMMENDING INPATIENT REHAB AT D/C. PATIENT AND SON IN AGREEMENT. CM WILL REMAIN AVAILABLE TO ASSIST AND FOLLOW NEEDED.
[2018-01-31 15:32] VITALS: BP 155/86
--- NOTE | 2018-01-31 16:28 | 2DMMODE ---
[place] [address] 2 D/M-MODE ECHOCARDIOGRAM Name: MONICA FOURNIER Room: [address] IN [facility]#: [id number] Admission: 01/28/18 Attend Phys: Ronda Nugent, Discharge: Date of : 33 Date of Service: 01/31/18 1628 Report #: [id number] THIS REPORT FOR: //name// APPROVED REPORT Study performed: 01/31/2018 10:21:43 EXAM: Comprehensive 2D, Doppler, and color-flow Echocardiogram Patient Location: In-Patient Room #: 218 Status: routine BSA: 1.78 HR: 83 bpm BP: 176/101 mmHg Rhythm: Atrial Fibrillation Other Information Study Quality: Good Indications CVA/TIA Echo Enhancing Agent Indication: Rule out Shunt Agent(s) / Amount(s) Used: Agitated Saline 10 cc 2D Dimensions LVEF(%): 72.42 (>50%) IVSd: 12.82 (7-11mm) LVOT Diam: 21.49 (18-24mm) LVDd: 35.30 mm PWd: 16.26 (7-11mm) Ascending Ao: 39.49 (22-36mm) LVDs: 20.95 (25-40mm) Aortic Root: 30.55 mm Issa's LVEF: 72.42 % Volumes Left Atrial Volume (Systole) LA ESV Index: 65.70 mL/m2 Aortic Valve AoV Peak Turner.: 1.48 m/s AO Peak Gr.: 8.72 mmHg LVOT Max P.12 mmHg AO Mean Gr.: 5.00 mmHg LVOT Mean P.48 mmHg LVOT Max V: 0.88 m/s AO V2 VTI: 27.88 cm LVOT Mean V: 0.55 m/[place] [address] 2 D/M-MODE ECHOCARDIOGRAM Name: MONICA FOURNIER HUNTER Room: [address] IN [facility].#: [id number] Admission: 01/28/18 Attend Phys: Ronda Nugent, Discharge: Date of : 33 Date of Service: 01/31/18 1628 Report #: [id number] ERMA (VTI): 2.18 cm2 LVOT V1 VTI: 16.74 cm AI [place]: 1.98 m/s2 AI PHT: 581.44 ms TDI Medial E' Turner.: 0.09 m/s Lateral E' Turner.: 0.13 m/s Pulmonary Valve PV Peak Turner.: 0.83 m/s PV Peak Gr.: 2.76 mmHg Tricuspid Valve RAP Estimate: 10.00 mmHg TR Peak Gr.: 60.85 mmHg RVSP: 70.85 mmHg PA Pressure: 70.85 mmHg Left Ventricle The left ventricle is normal size. There is normal LV segmental wall motion. Mild concentric left ventricular hypertrophy. Left ventricular systolic function is normal. The left ventricular ejection fraction is within the normal range. LVEF is 60%. This study is not technically sufficient to allow evaluation of the LV diastolic function due to atrial fibrillation. Right Ventricle Right ventricle is mildly dilated. The right ventricular systolic function is normal. Atria Left atrium is severely dilated. Interatrial septum is intact without evidence of ASD or PFO. Right atrium is severely dilated. Aortic Valve Mild aortic valve sclerosis. Mild to moderate aortic regurgitation. There is no aortic valvular stenosis. Mitral Valve The mitral valve is normal in structure. Mild mitral regurgitation. No evidence of mitral valve stenosis. Tricuspid Valve The tricuspid valve is normal in structure. Moderate to severe tricuspid regurgitation Moderate pulmonary hypertension. Pulmonic Valve The pulmonary valve is normal in structure[place] [address] 2 D/M-MODE ECHOCARDIOGRAM Name: MONICA FOURNIER Room: [address]#: [id number] Admission: 01/28/18 Attend Phys: Ronda Nugent, Discharge: Date of : 33 Date of Service: 01/31/18 1628 Report #: [id number] regurgitation. Great Vessels The aortic root is normal in size. The IVC is dilated. Pericardium There is no pericardial effusion. <Conclusion> The left ventricle is normal size. Mild concentric left ventricular hypertrophy. Left ventricular systolic function is normal. The left ventricular ejection fraction is within the normal range. LVEF is 60%. This study is not technically sufficient to allow evaluation of the LV diastolic function due to atrial fibrillation. Right ventricle is mildly dilated. Left atrium is severely dilated. Right atrium is severely dilated. Mild aortic valve sclerosis. Mild to moderate aortic regurgitation. There is no aortic valvular stenosis. The mitral valve is normal in structure. Mild mitral regurgitation. The tricuspid valve is normal in structure. Moderate to severe tricuspid regurgitation Moderate pulmonary hypertension. The IVC is dilated. There is no pericardial effusion. There is normal LV segmental wall motion. <ELECTRONICALLY SIGNED> By: Josh Burgess MD, FACC 01/31/18 1628 1628 1628 Josh Burgess MD, FACC /INF
[2018-01-31 19:45] VITALS: BP 153/74
[2018-02-01] VITALS (7 sets, daily range): BP systolic 136–175; BP diastolic 70–100
--- NOTE | 2018-02-01 04:25 | NUR ---
ASSUMED CARE OF PATIENT AT 1930. PATIENT IS FORGETFUL AND IS STILL HAVING TROUBLE WITH WORD FINDING AT TIMES. SHE HAS BED ALARMS ON FOR SAFETY AND IS ASSIST X1 WITH WALKER TO THE BATHROOM. PATIENT IS A-FIB ON TELEMETRY WITH HR 70S-80S. LEFT FA IV LOCK IN PLACE. PATIENT IS ON ROOM AIR, O2 96%. SHE IS STILL HYPERTENSIVE WITH BP 150-160/80-90. SHE SLEPT WELL THROUGHOUT THE NIGHT. CALL LIGHT WITHIN REACH. WILL CONTINUE TO MONITOR.
--- NOTE | 2018-02-01 12:05 | NUR ---
Spoke with Pt regarding disposition. Acute rehab is not going to have an available bed. Discussed SNF v. HH. Pt stated that she really wants to go home, but is willing to meet with the [facility] hospital liaison. Faxed referral. Pt states that she has a in home helper through her [facility] program, Pt states that she helps with her laundry. Pt stated that she gets 100hrs free through her insurance. Following.
--- NOTE | 2018-02-01 18:55 | NUR ---
ASSUMED RESPONSIBILITY OF PT THIS AM PT WITH ELEVATED BP AND LABETOLOL GIVEN PT WITH PERIODS OF CONFUSION STARTED TRAMADOL FOR LEFT SHOULDER PAIN AFIB WITH PVCS ON THE MONITOR UP SBA WITH A WALKER TO THE BR POSSIBLE DC TOMORROW TO [facility] FOR THERAPY OR HOME HEALTH ST TO DO A COGNITIVE EVAL BEFORE LEAVING SINCE STILL CONFUSED MRIX2 CAME BACK NEGATIVE
[2018-02-02 04:00] VITALS: BP 144/71
--- NOTE | 2018-02-02 05:37 | NUR ---
ASSUMED CARE OF PATIENT AT 1930. PATIENT SLEPT WELL THROUGHOUT THE NIGHT. BLOOD PRESSURES ARE IMPROVIN/70, 144/71. A-FIB NOTED ON TELEMETRY. 02 94% ON ROOM AIR. PATIENT HAS BEEN MORE A&O THIS SHIFT, AND IS AMBULATING WITH MINIMAL ASSISTANCE WITH WALKER. SHE REFUSED HS DOSE OF TRAMADOL AND DENIED PAIN THROUGHOUT THE NIGHT. LEFT FA IVL IN PLACE AND INTACT. BED ALARMS ON AND CALL LIGHT WITHIN REACH. WILL CONTINUE TO MONITOR PATIENT.
[2018-02-02 08:00] VITALS: BP 142/95
[2018-02-02] MEDS ORDERED: SYNTHROID150 MCG PO (10:09)
[2018-02-02] MEDS ORDERED: ATORVASTATIN CA40 MG PO (10:09)
[2018-02-02] MEDS ORDERED: ADULT LOW DOSE81 MG PO (10:09)
[2018-02-02] MEDS ORDERED: ATENOLOL 100MG100 MG PO (10:09)
[2018-02-02 12:00] VITALS: BP 151/92
--- NOTE | 2018-02-02 12:00 | NUR ---
RECEIVED REPORT FROM PRIYANKA WOODARD. ASSUMED CARE OF PT AROUND 0730. PT A&O X4, BUT FORGETFUL, ESPECIALLY SHORT TERM MEMORY FORGETFULLNESS. 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 AM ASSESSMENT AND VITALS COMPLETED CHARTED. IV TO LEFT FA INTACT AND SALINE LOCKED. PT REPORTED LEFT SHOULER PAIN THAT HAS BEEN MANAGED WITH PO SCHEDULED PAIN MEDICATION. PT EATING AND DRINKING WITHOUT ISSUE. PT UP WITH SBA WITH WALKER TO THE BATHROOM - HAD A BM THIS MORNING AND IS VOIDING WITHOUT ISSUE. PT TO GO TO [facility] THIS AFTERNOON. FALL PRECAUTIONS IN PLACE. CALL LIGHT IS WITHIN REACH, HOURLY ROUNDING PERFORMED. WCTM.
--- NOTE | 2018-02-02 12:27 | NUR ---
Pt discharging to [facility] today. Facility to picker packer today at 2pm. Faxed dc orders. Chart copied. Updated nurse. Nurse report number provided, . Pt stated that her son is aware of dc, she will call him and tell him the time.
[2018-02-02 13:01] VITALS: BP 151/92
[2018-02-02] MEDS ORDERED: ARICEPT 5 MG TAB5 MG PO (13:46)
--- NOTE | 2018-02-02 14:08 | NUR ---
DISCHARGE ORDERS RECEIVED. DISCHARGE COMPELTED DOCUMENTED. DISCHARGE PACKET PLACED IN FOLDER FOR TRANSPORTER. IV AND HR RECEPTIONIST REMOVED. ALL BELONGINGS GATHERED AND SENT WITH THE PT. SON NOTIFIED OF PT TRANSFERING TO FACILITY. VSS AT TIME OF DC. REPORT CALLED TO [facility], SPOKE TO YOLANDA WOODARD. PT LEFT UNIT IN WITH TRANSPORTER. PT LEFT HOSPITAL IN WHEEL CHAIR VAN WITH TRANSPORTER.
--- NOTE | 2018-02-04 12:17 | CON ---
[address] [address] CONSULTATION Name: MONICA FOURNIER Room: [address] IN [facility].#: [id number] Admission: 01/28/18 Attend Phys: Ronda Nugent MD Discharge: 02/02/18 Date of : 34 Report #: [id number] THIS REPORT FOR: //name// CC: Josh Nugent DATE OF SERVICE: 01/29/2018 HISTORY OF PRESENT ILLNESS: This is an 82-year-old female patient who was evaluated by me for altered mental status. The patient is not able to provide any reliable history because she is very confused and has what appeared to be garbled speech and aphasia. The son provides history. He indicates that the patient's boyfriend said she started becoming confused about a week ago. She had even more speech difficulty about 24 hours before she came in. She was keeping a log of her blood pressure reasonably well in December, then she stopped doing it for some reason in January. When she came in, her blood pressure was high. It is not clear how long it has been high and whether she was taking her medications or not. She had speech difficulty, but no associated focal paralysis. Presently, she is severely confused. REVIEW OF SYSTEMS: Positive for chronic atrial fibrillations, hypertension, and enlarged heart. She had GI problems in the past, but is not having much at the moment. She takes gabapentin, but does not know why she takes it. I carried out a 14-point review of system in this patient. It is very difficult to carry out because of her speech difficulty, but it does not look like she has any new eye, ENT, cardiac, respiratory, GI, , musculoskeletal, constitutional, dermatological, hematological, psychiatric, throat, allergic symptom associated with present symptomatology. PAST MEDICAL HISTORY: Negative for similar episode. FAMILY HISTORY: Negative for early age stroke. SOCIAL HISTORY: She lives with her boyfriend, but he is not available and therefore, the history was taken from the patient's son. She apparently does not smoke. PHYSICAL EXAMINATION: The patient's examinations indicate she is alert. She does not know what month it is. She does not know what day it is. She does not know what hospital she is in. Her speech is very hesitant and she gets wandered off very easily. Cranial nerve examination 2-12 was attempted. It was difficult, but does not appear to be showing any gross abnormality. Strength, sensation, reflexes and tone looks symmetrical. She has no cerebellar sign. She did not cooperate with the fundus examination. She is a reasonably well-developed individual who does not have any dysmorphic features of eyes, ears and face. Her vision and hearing looks adequate[place] [address] CONSULTATION Name: MONICA FOURNIER Room: [address] IN M.R.#: [id number] Admission: 01/28/18 Attend Phys: Ronda Nugent MD Discharge: 02/02/18 Date of : 34 Report #: [id number] difficult to feel. She has no edema, cyanosis or jaundice. She has no thyroid mass. There is no meningeal sign. CARDIAC: Shows regular heart. Respiratory examination does not appear to be showing any respiratory difficulty or rhonchi. Blood pressure is 174/90. It has been high since she has been here. Pulse is 84 and temperature is 98.3. LABS: Indicate normal white count and normal sodium, GFR is diminished. She did have an MRI of the brain and MRA of the head and that does not show any acute changes, which can explain the patient's symptoms. She does have some plaque formation in the carotid, which need to be worked up, but cannot explain the patient's present symptomatology. IMPRESSION: 1. 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 2. Hypertensive encephalopathy can lead to cerebrovascular accident. We have not demonstrated a cerebrovascular accident in this patient because MRI is normal so far. Occasionally, MRI can miss the stroke and she will need a repeat MRI about Wednesday. Presently main management is going to be controlling her blood pressure. Since carotids are open, we can lower the blood pressure a reasonably fast at least 150-160 systolic range. I will repeat an MRI on Wednesday, we will start the patient on aspirin and I will get an EEG done and followup this patient with you. RECOMMENDATION: I discussed all of it with the patient's son and he is agreeable with this plan and we will follow this plan. Thank you very much. <ELECTRONICALLY SIGNED> By: Jose Eduardo Del Valle MD 02/04/18 1217 1228 1407Jose Eduardo Del Valle MD /valeriy
--- NOTE | 2018-02-04 12:17 | EEG ---
[address] [address] EEG STUDY REPORT Name: MONICA FOURNIER Room: [address] IN M.R.#: [id number] Admission: 01/28/18 Attend Phys: Ronda Nugent MD Discharge: 02/02/18 Date of : 33 Report #: [id number] THIS REPORT FOR: //name// CC: Josh Nugent DATE OF SERVICE: 01/30/2018 This patient is being evaluated for altered mental status. EEG was done by placing the electrode by standard 10-20 system of electrode placement. Both referential and sequential montages were used for recording. Background activity in this patient's EEG is about 8-9 Hz and 30 microvolts. A lot of artifact is present, making the interpretation of this EEG very difficult. The patient went to sleep that is associated with bilateral slowing, vertex sharp waves and sleep spindles. Throughout the records, no active epileptiform activity was noted. IMPRESSION: EEG is masked by a lot of artifact and that makes the interpretation of this EEG very difficult. I do not see any clear-cut epileptiform activity. EEG is abnormal because it is slow and poorly formed on both sides. That can occur with encephalopathy, effect of psychotropic medication, dementia, etc. Clinical correlation is recommended. <ELECTRONICALLY SIGNED> By: Jose Eduardo Del Valle MD 02/04/18 1217 1620 1846MD berta Sanders
== END 2018-02-02 13:24 | DRG 77 ==
LOC: M.ERS 22:05 → M.TBA-ER 23:54 → M.2W 23:54
PROVIDERS: Emergency Medicine Emergency Medical Services; ADMIT Internal Medicine
DX: I67.4 Hypertensive encephalopathy (principal); G92 Toxic encephalopathy; I16.1 Hypertensive emergency; I50.32 Chronic diastolic (congestive) heart failure; Z91.048 Other nonmedicinal substance allergy status; M13.88 Other specified arthritis, other site; Z96.643 Presence of artificial hip joint, bilateral; Z96.653 Presence of artificial knee joint, bilateral; I48.2 Chronic atrial fibrillation; I11.0 Hypertensive heart disease with heart failure; R47.89 Other speech disturbances; I65.23 Occlusion and stenosis of bilateral carotid arteries; E03.9 Hypothyroidism, unspecified; E78.5 Hyperlipidemia, unspecified; Z85.828 Personal history of other malignant neoplasm of skin; Z98.1 Arthrodesis status; Z98.42 Cataract extraction status, left eye; Z98.41 Cataract extraction status, right eye; Z79.899 Other long term (current) drug therapy

== ENCOUNTER 2018-03-21 11:43 | Inpatient (IN) | payer OTHER ==
[~2018-03-21] VITALS: Ht 160 cm; Wt 69.9 kg
--- NOTE | ~2018-03-21 | PROC ---
[address] [address] PROCEDURE REPORT Name: MONICA FOURNIER Room: [address] IN M.R.#: [id number] Admission: 03/21/18 Attend Phys: Mackenzie Betancourt Discharge: 03/24/18 Date of : 34 Report #: [id number] THIS REPORT FOR: //name// For GI report, please see the Provation report in Perceptive 7 content. By: 1418Medical Records Staff LAINE /BRIAN
[~2018-03-21 11:43] MED LIST changes: +ADULT LOW DOSE81 MG PO; +ARICEPT 5 MG TAB5 MG PO; +ATENOLOL 100MG100 MG PO; +ATORVASTATIN CA40 MG PO; +SYNTHROID150 MCG PO
[2018-03-21 12:03] VITALS: BP 121/72
[2018-03-21] MEDS ORDERED: ATENOLOL 100MG100 MG PO (12:09)
[2018-03-21 13:11] LABS: URINE BILIRUBIN NEGATIVE (Negative); URINE BLOOD NEGATIVE (Negative); URINE CLARITY CLEAR; URINE COLOR YELLOW; URINE GLUCOSE-RANDOM NEGATIVE (Negative); URINE KETONES NEGATIVE (Negative); URINE LEUKOCYTES-REFLEX NEGATIVE (Negative); URINE NITRITE-REFLEX NEGATIVE (Negative); URINE PROTEIN NEGATIVE (Negative); URINE UROBILINOGEN 0.2 E.U./dl (0.2-1.0)
[2018-03-21 13:16] LABS: ABSOLUTE BASOPHILS 0.1 thou/uL (0.0-0.2); ABSOLUTE EOSINOPHILS 0.2 thou/uL (0.0-0.7); ABSOLUTE LYMPHOCYTES 1.5 thou/uL (0.8-5.3); ABSOLUTE MONOCYTES 0.6 thou/uL (0.0-1.2); ABSOLUTE NEUTROPHILS 4.8 thou/uL (1.6-8.1); BASOPHILS 1.4 %; EOSINOPHILS 2.6 %; HEMATOCRIT 26.8 % (37.0-47.0); LYMPHOCYTES 20.2 %; MCH 34.8 pg (26.0-34.0); MCHC 33.7 g/dL (28.0-37.0); MCV 103.2 fL (80.0-100.0); MONOCYTES 8.9 %; MPV 9.3 fl. (7.2-11.1); NUCLEATED RBCS 0 /100WBC; PLATELET COUNT* 177 thou/uL (150-400); POLYS 66.9 %; RBC 2.59 mil/uL (4.20-5.00); RDW-CV 14.8 % (10.5-14.5); WBC 7.2 thou/uL (4.0-11.0)
[2018-03-21 13:25] LABS: ANION GAP 5 mmol/L (7-16); BUN 39 mg/dL (7-18); CALCIUM 8.7 mg/dL (8.5-10.1); CHLORIDE 103 mmol/L (98-107); CO2 30 mmol/L (21-32); CREATININE 0.8 mg/dL (0.6-1.3); GLUCOSE 99 mg/dL (70-99); POTASSIUM 3.7 mmol/L (3.5-5.1); SODIUM 138 mmol/L (136-145)
[2018-03-21 13:33] LABS: ALBUMIN 2.9 g/dL (3.4-5.0); ALKALINE PHOSPHATASE 102 U/L (46-116); LIPASE 99 U/L (73-393); SGOT 30 U/L (15-37); SGPT 25 U/L (30-65); TOTAL BILIRUBIN 0.6 mg/dL (<0.1-1.0); TOTAL PROTEIN 6.2 g/dL (6.4-8.2); TROPONIN-I LEVEL <0.06 ng/mL (<0.06)
[2018-03-21 16:00] VITALS: BP 139/57
[2018-03-21 16:12] VITALS: BP 143/80
--- NOTE | 2018-03-21 17:09 | EKG ---
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 : [id number] Requested By: Yasir Peraza Order Number: [id number] MD: Suresh Castro Measurements Intervals [place] Rate: 71 P: VA: QRS: 61 QRSD: 97 T: -18 QT: 422 QTc: 459 Interpretive Statements Atrial fibrillation artifact noted Nonspecific repol abnormality, inferior leads Baseline wander in lead(s) II,III,aVL,aVF Compared to ECG 01/28/2018 22:30:40 Left posterior fascicular block no longer present Right bundle-branch block no longer present Electronically Signed On 03-21-2018 17:08:51 CDT by Suresh Castor [email or web address] <ELECTRONICALLY SIGNED> By: Suresh Castro MD, [facility] 03/21/18 1708 1244 1244 Suresh Castro MD, [facility] /EPI
[2018-03-21] MEDS ORDERED: CARDURA4 MG PO (17:24)
[2018-03-21 20:00] VITALS: BP 105/45
[2018-03-22 01:02] VITALS: BP 104/51
[2018-03-22 05:09] VITALS: BP 118/59
[2018-03-22 05:30] LABS: ABSOLUTE BASOPHILS 0.1 thou/uL (0.0-0.2); ABSOLUTE EOSINOPHILS 0.3 thou/uL (0.0-0.7); ABSOLUTE LYMPHOCYTES 1.6 thou/uL (0.8-5.3); ABSOLUTE MONOCYTES 0.7 thou/uL (0.0-1.2); ABSOLUTE NEUTROPHILS 4.4 thou/uL (1.6-8.1); BASOPHILS 1.7 %; EOSINOPHILS 4.7 %; HEMATOCRIT 23.2 % (37.0-47.0); HEMOGLOBIN 7.8 gm/dL (12.0-15.0); LYMPHOCYTES 22.5 %; MCH 35.2 pg (26.0-34.0); MCHC 33.6 g/dL (28.0-37.0); MCV 104.9 fL (80.0-100.0); NUCLEATED RBCS 0 /100WBC; PLATELET COUNT* 154 thou/uL (150-400); POLYS 61.1 %; RBC 2.21 mil/uL (4.20-5.00); WBC 7.2 thou/uL (4.0-11.0)
[2018-03-22 05:38] LABS: CALCIUM 8.1 mg/dL (8.5-10.1); CREATININE 0.9 mg/dL (0.6-1.3); POTASSIUM 3.9 mmol/L (3.5-5.1)
[2018-03-22 08:00] VITALS: BP 127/77
[2018-03-22 11:54] VITALS: BP 115/65
[2018-03-22 16:00] VITALS: BP 106/42
[2018-03-22 18:39] LABS: HEMOGLOBIN 7.5 gm/dL (12.0-15.0)
[2018-03-22 20:00] VITALS: BP 117/75
[2018-03-23 04:43] LABS: CALCIUM 7.8 mg/dL (8.5-10.1); CREATININE 0.9 mg/dL (0.6-1.3); POTASSIUM 3.4 mmol/L (3.5-5.1)
[2018-03-23 05:24] LABS: ABSOLUTE BASOPHILS 0.1 thou/uL (0.0-0.2); ABSOLUTE EOSINOPHILS 0.4 thou/uL (0.0-0.7); ABSOLUTE LYMPHOCYTES 1.2 thou/uL (0.8-5.3); ABSOLUTE MONOCYTES 0.5 thou/uL (0.0-1.2); ABSOLUTE NEUTROPHILS 3.8 thou/uL (1.6-8.1); BASOPHILS 1.9 %; EOSINOPHILS 6.1 %; HEMATOCRIT 20.6 % (37.0-47.0); LYMPHOCYTES 19.9 %; MCH 34.5 pg (26.0-34.0); MCHC 32.9 g/dL (28.0-37.0); MCV 104.9 fL (80.0-100.0); MPV 9.7 fl. (7.2-11.1); NUCLEATED RBCS 0 /100WBC; PLATELET COUNT* 146 thou/uL (150-400); POLYS 63.1 %; RBC 1.96 mil/uL (4.20-5.00)
[2018-03-23 05:26] LABS: HEMOGLOBIN 6.8 gm/dL (12.0-15.0)
[2018-03-23 09:15] VITALS: BP 145/66
[2018-03-23 09:47] VITALS: BP 110/61; BP 116/87; BP 117/61; BP 122/84; BP 127/45; BP 177/61
[2018-03-23 15:36] LABS: HEMATOCRIT 24.8 % (37.0-47.0); HEMOGLOBIN 8.2 gm/dL (12.0-15.0)
[2018-03-23 16:33] VITALS: BP 126/73
[2018-03-23] MEDS ORDERED: PROTONIX40 M1 PO (16:48)
[2018-03-23 17:30] VITALS: BP 142/77; BP 143/85
[2018-03-23 21:00] VITALS: BP 121/68
[2018-03-24 09:00] VITALS: BP 159/81
[2018-03-24 12:54] VITALS: BP 159/81
[2018-03-24 12:58] VITALS: BP 159/81
[2018-03-24 13:07] VITALS: BP 159/81
[2018-03-24 13:28] VITALS: BP 159/81
== END 2018-03-24 13:32 | disposition home or self-care (01) | DRG 378 ==
LOC: M.ERS 11:43 → M.2W 14:39 → M.TBA-ER 14:39 → M.2W 16:34 → M.3W 03-22 23:48
PROVIDERS: Emergency Medicine Emergency Medical Services; Internal Medicine; Internal Medicine Gastroenterology; ADMIT Internal Medicine
PROC: 0W3P8ZZ Control Bleeding in Gastrointestinal Tract, Via Natural or Artificial Opening Endoscopic (ICD-10-PCS; principal; 2018-03-22)
PROC: 30233N1 Transfusion of Nonautologous Red Blood Cells into Peripheral Vein, Percutaneous Approach (ICD-10-PCS; 2018-03-23)
DX: K26.4 Chronic or unspecified duodenal ulcer with hemorrhage (principal); D62 Acute posthemorrhagic anemia; E44.1 Mild protein-calorie malnutrition; K59.00 Constipation, unspecified; I10 Essential (primary) hypertension; M19.90 Unspecified osteoarthritis, unspecified site; Z96.643 Presence of artificial hip joint, bilateral; I48.2 Chronic atrial fibrillation; G89.29 Other chronic pain; E03.9 Hypothyroidism, unspecified; Z96.653 Presence of artificial knee joint, bilateral; Z98.1 Arthrodesis status; Z98.42 Cataract extraction status, left eye; Z98.41 Cataract extraction status, right eye; Z85.89 Personal history of malignant neoplasm of other organs and systems; Z79.01 Long term (current) use of anticoagulants; Z91.040 Latex allergy status; Z79.899 Other long term (current) drug therapy; Z79.82 Long term (current) use of aspirin; Z79.1 Long term (current) use of non-steroidal anti-inflammatories (NSAID); Z68.27 Body mass index [BMI] 27.0-27.9, adult

== ENCOUNTER → 2018-06-15 | Outpatient (CLI) | payer OTHER ==
[~2018-06-15] MED LIST changes: +CARDURA4 MG PO; +PROTONIX40 M1 PO
--- NOTE | 2018-06-15 15:22 | 2DMMODE ---
[place] [address] 2 D/M-MODE ECHOCARDIOGRAM Name: MONICA FOURNIER Room: [facility]#: [id number] Admission: 06/15/18 Attend Phys: Josh Townsend, Discharge: Date of : 33 Date of Service: 06/15/18 1522 Report #: [id number] THIS REPORT FOR: //name// APPROVED REPORT Study performed: 06/15/2018 12:54:06 EXAM: Comprehensive 2D, Doppler, and color-flow Echocardiogram Patient Location: Out-Patient Status: routine BSA: 1.76 HR: 75 bpm BP: 120/78 mmHg Other Information Study Quality: Good Indications Atrial Fibrillation Dyspnea Cardiomegaly 2D Dimensions IVSd: 15.74 (7-11mm) LVOT Diam: 20.06 (18-24mm) LVDd: 36.25 mm PWd: 12.95 (7-11mm) Ascending Ao: 33.11 (22-36mm) LVDs: 23.20 (25-40mm) Aortic Root: 29.15 mm Volumes Left Atrial Volume (Systole) LA ESV Index: 45.10 mL/m2 Aortic Valve AoV Peak Turner.: 1.25 m/s AO Peak Gr.: 6.22 mmHg LVOT Max P.18 mmHg AO Mean Gr.: 3.23 mmHg LVOT Mean P.00 mmHg LVOT Max V: 0.74 m/s AO V2 VTI: 23.17 cm LVOT Mean V: 0.46 m/s ERMA (VTI): 1.63 cm2 LVOT V1 VTI: 11.98 cm AI [place]: 2.80 m/s2 AI PHT: 472.85 [place] [address] 2 D/M-MODE ECHOCARDIOGRAM Name: MONICA FOURNIER Room: [facility]#: [id number] Admission: 06/15/18 Attend Phys: Josh Townsend, Discharge: Date of : 34 Date of Service: 06/15/18 1522 Report #: [id number] MV Decel. Time: 140.89 ms MV E Max Turner.: 0.96 m/s MV PHT: 40.86 ms MVA (PHT): 5.38 cm2 TDI E/Lateral E': 6.86 E/Medial E': 8.73 Medial E' Turner.: 0.11 m/s Lateral E' Turner.: 0.14 m/s Pulmonary Valve PV Peak Turner.: 0.73 m/s PV Peak Gr.: 2.12 mmHg Tricuspid Valve RAP Estimate: 10.00 mmHg TR Peak Gr.: 59.58 mmHg RVSP: 69.58 mmHg PA Pressure: 69.58 mmHg Left Ventricle The left ventricle is normal size. There is normal LV segmental wall motion. Mild concentric left ventricular hypertrophy. Left ventricular systolic function is normal. The left ventricular ejection fraction is within the normal range. LVEF is 55-60%. The left ventricular diastolic function is normal. Right Ventricle The right ventricle is normal size. The right ventricular systolic function is normal. Atria Left atrium is moderately dilated. Right atrium is severely dilated. Aortic Valve Aortic valve is mildly calcified. Mild to moderate aortic regurgitation. There is no aortic valvular stenosis. Mitral Valve The mitral valve is normal in structure. Mild mitral regurgitation. No evidence of mitral valve stenosis. Tricuspid Valve The tricuspid valve is normal in structure. Moderate to severe tricuspid regurgitation. estimated pa pressure 70 [place] [address] 2 D/M-MODE ECHOCARDIOGRAM Name: MONICA FOURNIER Room: [facility]#: [id number] Admission: 06/15/18 Attend Phys: Josh Townsend, Discharge: Date of : 33 Date of Service: 06/15/18 1522 Report #: [id number] The pulmonary valve is normal in structure. Mild pulmonic regurgitation. Great Vessels The aortic root is normal in size. IVC is normal in size and collapses <50% with inspiration. Pericardium Trace pericardial effusion. <Conclusion> Mild concentric left ventricular hypertrophy. LVEF is 55-60%. Left atrium is moderately dilated. Right atrium is severely dilated. Mild to moderate aortic regurgitation. Mild mitral regurgitation. Moderate to severe tricuspid regurgitation. estimated pa pressure 70 mm Hg <ELECTRONICALLY SIGNED> By: Suresh Castro MD, FACC 06/15/18 1522 1522 152 Suresh Castro MD, FACC /INF
== END ==
LOC: M.CRD 12:29
DX: I08.3 Combined rheumatic disorders of mitral, aortic and tricuspid valves (principal); I48.91 Unspecified atrial fibrillation

== ENCOUNTER → 2018-07-20 | Outpatient (CLI) | payer OTHER | LOC: M.RAD 06-29 07:54 | DX: N63.24 Unspecified lump in the left breast, lower inner quadrant (principal); N64.59 Other signs and symptoms in breast ==

== ENCOUNTER → 2018-07-21 | Outpatient (CLI) | payer OTHER ==
--- NOTE | 2018-07-26 10:07 | PATH ---
[address] [address] PATHOLOGY RPT PROCEDURE Name: FOURNIERBROOKE HUNTER Room: [facility] JAVI Barnes#: [id number] Admission: 07/21/18 Date of : 33 Discharge: Report #: [id number] Path Case #: [id number] [facility] Accession Number: [id number] . 01 Material submitted: . LEFT BREAST . 01 Clinical history: . 1.1 x 0.56 x 0.58 cm mass, 7 o'clock, 2 cm from nipple . 02 Diagnosis: Left breast mass, 7:00, 2 cm from nipple, image-guided core biopsy: - Benign breast tissue with fibrosis and cystic apocrine change, negative for atypia. See comment. (ROSA:dawson; 07/25/2018) QMS/07/25/2018 . 02 Comment: Reviewed with Dr. Kristyn Joel, who agrees with the diagnosis. (ROSA:dawson; 07/25/2018) . 02 Electronically signed: . Kalyan Downs MD, Pathologist NPI- [id number] . 01 Gross description: . Received in formalin labeled "Brooke Fournier, left breast 7:00 2 cm FN," are multiple needle cores of yellow-emery fibrofatty tissue measuring 2.7 x 2.5 x 0.6 cm in aggregate dimensions. The tissue is submitted in its entirety in cassettes A1 through A3. The cold ischemic time is 3 minutes. The total formalin fixation time is 28 hours and 12 minutes. (TSD; 07/21/2018) TOB/TOB . 02 Pathologist provided ICD-10: N60.32, N63.20 . 02 CPT . 685078 Specimen Comment: A courtesy copy of this report has been sent to Specimen Comment: [phone], , . Specimen Comment: Report sent to ,DR WELDON / DR HOPE Specimen Comment: A duplicate report has been generated due to demographic updates. Performed at: [address] [facility], [place], [place] [id number] MD Keyon Bartlett MD Phone: [phone] [place] [address] PATHOLOGY RPT PROCEDURE Name: BROOKE FOURNIER [id number] Admission: 07/21/18 Date of : 34 Discharge: Report #: [id number] Path Case #: [id number] Performed at: 02 [facility] [address], [place], [place] [id number] MD Kalyan Downs MD Phone: [phone]
== END | disposition home or self-care (01) ==
LOC: M.ULTRA 11:20
DX: N60.32 Fibrosclerosis of left breast (principal); N60.82 Other benign mammary dysplasias of left breast; R92.1 Mammographic calcification found on diagnostic imaging of breast; I67.4 Hypertensive encephalopathy; I10 Essential (primary) hypertension; I48.2 Chronic atrial fibrillation; Z79.01 Long term (current) use of anticoagulants; Z79.899 Other long term (current) drug therapy; Z87.19 Personal history of other diseases of the digestive system; Z98.890 Other specified postprocedural states

== ENCOUNTER → 2018-08-15 | Outpatient (CLI) | payer OTHER | LOC: M.ULTRA 16:15 | DX: M79.89 Other specified soft tissue disorders (principal) ==

== ENCOUNTER → 2018-09-23 | Outpatient (CLI) | payer OTHER | LOC: M.CT 09:00 | DX: R18.8 Other ascites (principal); K76.0 Fatty (change of) liver, not elsewhere classified; I51.7 Cardiomegaly; J90 Pleural effusion, not elsewhere classified; I31.3 Pericardial effusion (noninflammatory); K57.30 Diverticulosis of large intestine without perforation or abscess without bleeding; I70.0 Atherosclerosis of aorta; M48.061 Spinal stenosis, lumbar region without neurogenic claudication ==

== ENCOUNTER 2019-01-30 16:51 | Inpatient (IN) | payer OTHER ==
[~2019-01-30] VITALS: Ht 157.5 cm; Wt 62.7 kg
--- NOTE | ~2019-01-30 | CON ---
[address] [address] CONSULTATION Name: MONICA FOURNIER Room: [address] IN .R.#: [id number] Admission: 01/30/19 Attend Phys: Rubin Ross MD Discharge: Date of : 33 Report #: [id number] THIS REPORT FOR: //name// CC: Rubin Townsend DO DICTATED BY: Najma Alanis [facility] DATE OF SERVICE: 02/02/2019 Please note at the time of this dictation, the patient was seen and physically examined by myself. REASON FOR CONSULTATION: Abnormal PT/INR, elevated over total bilirubin and alkaline phosphatase and thrombocytopenia. HISTORY OF PRESENT ILLNESS: This is an 83-year-old female who presented to the Emergency Room with abdominal distention, onset of 2 months ago. She was having increased shortness of breath associated with this as well. CT was done as an outpatient and showed that she had fluid on her lungs and abdomen and was told to come to the Emergency Room. The patient was last seen by us back in May after she underwent an EGD to check for healing of the duodenal ulcer that she had and it was completely healed from earlier in the year. It was also noted on labs that were done at that time in June that her platelet count was 149 and the rest of her labs were normal. ALLERGIES: ADHESIVE TAPE. MEDICATIONS: From home include pantoprazole, gabapentin, magnesium oxide, Cardura, Lasix, fish oil, Os-Richard, Zestril, Eliquis, Tenormin. PAST MEDICAL HISTORY: Hypertension, chronic atrial fibrillation, arthritis. 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 PAST SURGICAL HISTORY: Bilateral hip, bilateral knee, carpal tunnel, laminectomy, cervical spine fusion, bilateral cataracts. FAMILY HISTORY: Noncontributory. SOCIAL HISTORY: Denies any alcohol, tobacco, or illegal drug use at this time. REVIEW OF SYSTEMS: Twelve-point review of systems is essentially negative except what is mentioned in the HPI. PHYSICAL EXAMINATION: [place] [address] CONSULTATION Name: MONICA FOURNIER Room: [address]#: [id number] Admission: 01/30/19 Attend Phys: Rubin Ross MD Discharge: Date of : 34 Report #: [id number] VITAL SIGNS: Temperature 36.3, pulse 81, respirations 19, blood pressure 156/98. HEART: Irregular rate and rhythm with a murmur noted. LUNGS: Slightly diminished bilaterally. ABDOMEN: Soft, positive bowel sounds in all 4 quadrants with no masses or tenderness noted. LABORATORY DATA: Hemoglobin is 12.3, white count is 4.8, platelets are 94, MCV is 101. GFR is 53. PT is 14.3, INR is 1.4. Total bilirubin is 1.4, alkaline phosphatase is 162, ALT is 32, AST is 30. CT on admission showed cardiomegaly with pericardial effusion. Heart with moderate right pleural effusion that was noted. She has a igpbf-xr-vmyynyhh amount of ascites noted in the pelvis, otherwise normal. Ultrasound done at that time showed just a very small volume of abdominal ascites and made no mention of the contour of the liver and not enough to perform a paracentesis. The patient did undergo a thoracentesis and had 600 mL pulled off yesterday. IMPRESSION: 1. Fatty liver disease. 2. Thrombocytopenia. 3. Elevated LFTs. 4. History of congestive heart failure. 5. Anticoagulant therapy, Eliquis. 6. Atrial fibrillation. PLAN: 1. We will plan on doing acute hepatitis panel, alpha-1 antitrypsin, alpha-fetoprotein, AMALIA, AMA, ASMA, ceruloplasmin, GGTP, quantitative IgA and IgG. 2. These labs will not be available prior to her discharge and we can follow up with those as an outpatient. Did discuss with the patient possibility of a liver biopsy. 3. Further recommendations to be made after Dr. Leyva sees the patient later today. Thank you for allowing us to participate in this patient's care. Please do not hesitate to call with any questions in regard to this consult. By: [id number] Leyva DO /nt
[~2019-01-30 16:51] MED LIST changes: -ATENOLOL 50MG T50 M1 PO; -NATURAL LUTEIN20 MG PO; -ZEAXANTHIN100 GM
[2019-01-30 17:01] VITALS: BP 137/99
[2019-01-30] MEDS ORDERED: ATENOLOL 50MG T50 M1 PO (17:14)
[2019-01-30] MEDS ORDERED: NATURAL LUTEIN20 MG PO (17:16)
[2019-01-30] MEDS ORDERED: ZEAXANTHIN100 GM (17:17)
[2019-01-30 17:42] LABS: ABSOLUTE BASOPHILS 0.1 thou/uL (0.0-0.2); ABSOLUTE EOSINOPHILS 0.1 thou/uL (0.0-0.7); ABSOLUTE LYMPHOCYTES 1.1 thou/uL (0.8-5.3); ABSOLUTE MONOCYTES 0.6 thou/uL (0.0-1.2); ABSOLUTE NEUTROPHILS 4.5 thou/uL (1.6-8.1); BASOPHILS 0.9 %; EOSINOPHILS 1.8 %; HEMATOCRIT 39.5 % (37.0-47.0); HEMOGLOBIN 13.4 gm/dL (12.0-15.0); LYMPHOCYTES 17.2 %; MCH 34.4 pg (26.0-34.0); MCHC 33.9 g/dL (28.0-37.0); MCV 101.5 fL (80.0-100.0); MONOCYTES 9.2 %; MPV 10.1 fl. (7.2-11.1); NUCLEATED RBCS 0 /100WBC; PLATELET COUNT* 104 thou/uL (150-400); POLYS 70.9 %; RBC 3.89 mil/uL (4.20-5.00); RDW-CV 16.6 % (10.5-14.5); WBC 6.3 thou/uL (4.0-11.0)
[2019-01-30 18:12] LABS: APTT 35.8 Seconds (25.0-31.3); INR 1.5; PROTIME 15.2 Seconds (9.20-11.50)
[2019-01-30 18:16] LABS: ANION GAP 7 mmol/L (7-16); BUN 20 mg/dL (7-18); CALCIUM 9.3 mg/dL (8.5-10.1); CHLORIDE 99 mmol/L (98-107); CO2 30 mmol/L (21-32); CREATININE 0.9 mg/dL (0.6-1.3); GLUCOSE 84 mg/dL (70-99); POTASSIUM 4.1 mmol/L (3.5-5.1); SODIUM 136 mmol/L (136-145)
[2019-01-30 18:22] LABS: ALBUMIN 3.7 g/dL (3.4-5.0); ALKALINE PHOSPHATASE 194 U/L (46-116); NT-PRO BRAIN NAT PEPTIDE 2310 pg/mL (<300); SGOT 49 U/L (15-37); SGPT 40 U/L (30-65); TOTAL BILIRUBIN 1.2 mg/dL (<0.1-1.0); TROPONIN-I LEVEL <0.06 ng/mL (<0.06)
[2019-01-30 18:45] LABS: URINE BILIRUBIN NEGATIVE (Negative); URINE BLOOD TRACE (Negative); URINE CLARITY CLEAR; URINE COLOR YELLOW; URINE GLUCOSE-RANDOM NEGATIVE (Negative); URINE KETONES NEGATIVE (Negative); URINE LEUKOCYTES-REFLEX NEGATIVE (Negative); URINE NITRITE-REFLEX NEGATIVE (Negative); URINE PROTEIN NEGATIVE (Negative); URINE SPECIFIC GRAVITY <= 1.005 (1.005-1.030); URINE UROBILINOGEN 0.2 E.U./dl (0.2-1.0)
--- NOTE | 2019-01-30 21:03 | NUR ---
VS 140/87 P81 RR13 O2 SAT 93% ON RA PT TRANSFERED TO TELE REPORT GIVEN TO YURIY. UNABLE TO ACCESS DEPART FORMS IN COMPUTER.
[2019-01-30 21:30] VITALS: BP 146/96
[2019-01-31 00:49] VITALS: BP 174/103
[2019-01-31 03:17] VITALS: BP 130/82
[2019-01-31 05:17] LABS: ABSOLUTE BASOPHILS 0.1 thou/uL (0.0-0.2); ABSOLUTE EOSINOPHILS 0.1 thou/uL (0.0-0.7); ABSOLUTE LYMPHOCYTES 0.9 thou/uL (0.8-5.3); ABSOLUTE MONOCYTES 0.6 thou/uL (0.0-1.2); ABSOLUTE NEUTROPHILS 3.6 thou/uL (1.6-8.1); BASOPHILS 1.9 %; EOSINOPHILS 2.1 %; HEMATOCRIT 38.2 % (37.0-47.0); HEMOGLOBIN 12.5 gm/dL (12.0-15.0); LYMPHOCYTES 17.6 %; MCH 33.4 pg (26.0-34.0); MCHC 32.8 g/dL (28.0-37.0); MCV 101.7 fL (80.0-100.0); MONOCYTES 11.6 %; MPV 10.1 fl. (7.2-11.1); NUCLEATED RBCS 0 /100WBC; PLATELET COUNT* 94 thou/uL (150-400); POLYS 66.8 %; RBC 3.76 mil/uL (4.20-5.00); RDW-CV 16.2 % (10.5-14.5); WBC 5.4 thou/uL (4.0-11.0)
[2019-01-31 05:24] LABS: CALCIUM 9.1 mg/dL (8.5-10.1); POTASSIUM 3.6 mmol/L (3.5-5.1)
[2019-01-31 08:00] VITALS: BP 159/101
--- NOTE | 2019-01-31 08:02 | NUR ---
PT ARRIVED FROM ER AROUND 2100. ASSESSMENT COMPLETED CHARTED. ABLE TO MAKE NEEDS KNOWN. UP WITH ASSIST TO BSC. NO C/O PAIN OR DISCOMFORT. ACCOMPANIED BY SON FOR ABOUT AN HOUR BEFORE HE WENT HOME. PT RESTING IN BED AT THIS TIME. MEDS RESTARTED IN ER. VSS. WILL CONTINUE TO MONITOR.
--- NOTE | 2019-01-31 15:05 | NUR ---
MET WITH PT TO DISCUSS HOME SITUATION/DC PLANNING. PT LIVES ALONE IN APT AT [facility], SHE PLNAS OT RETURN THERE AT DC. PT USES WALKER NEEDED, HAS HAD HH IN PAST WITH [facility] AND ALSO BEEN TO SNF AT [facility]. PT DENIES ANY DC NEEDS AT THIS TIME. CHILDREN ARE SUPPORTIVE AND SON/OLIVA DRIVES PT WHERE SHE NEEDS TO GO. WILL FOLLOW
--- NOTE | 2019-01-31 15:38 | 2DMMODE ---
[place] [address] 2 D/M-MODE ECHOCARDIOGRAM Name: MONICA FOURNIER Room: [address] IN [facility]#: [id number] Admission: 01/30/19 Attend Phys: Rubin Ross, Discharge: Date of : 34 Date of Service: 01/31/19 1537 Report #: [id number] THIS REPORT FOR: //name// APPROVED REPORT Study performed: 01/31/2019 11:05:50 EXAM: Comprehensive 2D, Doppler, and color-flow Echocardiogram Patient Location: In-Patient Room #: [facility] Status: routine BSA: 1.70 HR: 80 bpm BP: 159/101 mmHg Rhythm: Atrial Fibrillation Other Information Study Quality: Good Indications Pericardial Effusion 2D Dimensions IVSd: 8.75 (7-11mm) LVOT Diam: 19.94 (18-24mm) LVDd: 33.04 mm PWd: 9.53 (7-11mm) Ascending Ao: 36.66 (22-36mm) LVDs: 19.91 (25-40mm) Aortic Root: 34.54 mm Volumes Left Atrial Volume (Systole) LA ESV Index: 65.70 mL/m2 Aortic Valve AoV Peak Turner.: 1.27 m/s AO Peak Gr.: 6.42 mmHg LVOT Max P.74 mmHg AO Mean Gr.: 3.58 mmHg LVOT Mean P.18 mmHg LVOT Max V: 0.83 m/s AO V2 VTI: 24.29 cm LVOT Mean V: 0.49 m/s ERMA (VTI): 2.06 cm2 LVOT V1 VTI: 16.05 cm AI Dukes: 2.00 m/s2 AI PHT: 628.89 ms Pulmonary Valve PV Peak Turner.: 0.75 m/s PV Peak Gr.: 2.28 [place] [address] 2 D/M-MODE ECHOCARDIOGRAM Name: MONICA FOURNIER Room: [address] IN [facility].#: [id number] Admission: 01/30/19 Attend Phys: Rubin Ross, Discharge: Date of : 34 Date of Service: 01/31/19 1537 Report #: [id number] Tricuspid Valve RAP Estimate: 15.00 mmHg TR Peak Gr.: 81.61 mmHg RVSP: 96.00 mmHg PA Pressure: 96.00 mmHg Left Ventricle The left ventricle is normal size. There is normal LV segmental wall motion. Mild concentric left ventricular hypertrophy. Left ventricular systolic function is normal. LVEF is 65-70%. This study is not technically sufficient to allow evaluation of the LV diastolic function due to atrial fibrillation. Right Ventricle Right ventricle is mild to moderately dilated. Right ventricle is hypertrophied. The right ventricular systolic function is normal. Atria Left atrium is severely dilated. Right atrium is severely dilated. Aortic Valve Mild aortic valve sclerosis. Mild aortic regurgitation. There is no aortic valvular stenosis. Mitral Valve The mitral valve is normal in structure. Trace mitral regurgitation. No evidence of mitral valve stenosis. Tricuspid Valve The tricuspid valve is normal in structure. Moderate to severe tricuspid regurgitation. Severe pulmonary hypertension. Pulmonic Valve The pulmonary valve is normal in structure. Mild pulmonic regurgitation. Great Vessels The aortic root is normal in size. IVC is dilated and collapses <50% with inspiration. Pericardium Mild to Moderate circumferential [place] [address] 2 D/M-MODE ECHOCARDIOGRAM Name: MONICA FOURNIER ELSA Room: [address] IN ..#: [id number] Admission: 01/30/19 Attend Phys: Rubin Ross, Discharge: Date of : 33 Date of Service: 01/31/19 1537 Report #: [id number] <Conclusion> The left ventricle is normal size. Mild concentric left ventricular hypertrophy. Left ventricular systolic function is normal. LVEF is 65-70%. There is normal LV segmental wall motion. Right ventricle is mild to moderately dilated. Right ventricle is hypertrophied. Left atrium is severely dilated. Right atrium is severely dilated. Mild aortic valve sclerosis. Mild aortic regurgitation. There is no aortic valvular stenosis. Moderate to severe tricuspid regurgitation. Severe pulmonary hypertension. Mild pulmonic regurgitation. IVC is dilated and collapses <50% with inspiration. <ELECTRONICALLY SIGNED> By: Geoffrey Del Castillo MD, FACC 01/31/19 1537 1537 1537 Geoffrey Del Castillo MD, FACC /INF
--- NOTE | 2019-01-31 16:10 | EKG ---
[place] [address] ELECTROCARDIOGRAM REPORT Name: MONCIA FOURNIER Room: [address] ADM IN [facility].#: [id number] Admission: 01/30/19 Attend Phys: Rubin Ross MD Discharge: Date of : 34 Report #: [id number] THIS REPORT FOR: //name// [facility] ED Test Date: 2019-01-30 Test Time: 17:40:59 Pat Name: MONICA FOURNIER Department: Room: [facility] Gender: F Mold Mover: : 1935 Requested By: Tommy Mendez Order Number: [id number] MD: Suresh Castro Measurements Intervals Binger Rate: 86 P: GA: QRS: 78 QRSD: 96 T: 30 QT: 391 QTc: 468 Interpretive Statements Atrial fibrillation Baseline wander in lead(s) V3 Compared to ECG 03/21/2018 12:44:11 no change Electronically Signed On 01-31-2019 16:10:42 CDT by Suresh Castro [email or web address] <ELECTRONICALLY SIGNED> By: Suresh Castro MD, [facility] 01/31/19 1610 1740 1740 Suresh Castro MD, [facility] /EPI
--- NOTE | 2019-01-31 16:45 | NUR ---
PT RESTING IN BED THROUGHOUT SHIFT. PT CALLS APPROPRIATELY FOR ASSIST. SOA WITH ACTIVITY IMPROVED SLIGHTLY SINCE THORACENTESIS THIS PM. AFIB ON MONITOR-RATE CONTROLLED.
[2019-01-31 17:13] VITALS: BP 135/95
[2019-01-31 19:35] VITALS: BP 124/77
[2019-02-01] VITALS: BP 122/78; BP 128/82
[2019-02-01 04:00] VITALS: BP 132/80
--- NOTE | 2019-02-01 04:20 | NUR ---
ASSUMED CARE OF PT AT 1900. PT IS ALERT AND ORIENTED. VSS. PERRLA. NO COMPLAINTS OF PAIN. PT IS IN AFIB ON THE TELEMETRY. PT IS RESTING COMFORTABLY IN BED. RESPIRATIONS ARE EVEN AND NONLABORED. WILL CONTINUE TO MONITOR PT.
[2019-02-01 04:38] LABS: CALCIUM 8.9 mg/dL (8.5-10.1); POTASSIUM 3.6 mmol/L (3.5-5.1)
[2019-02-01 07:25] VITALS: BP 144/89
[2019-02-01 08:39] LABS: BF RBC 22303 /mm3; TOTAL CELL COUNT 657 /mm3
[2019-02-01 08:43] LABS: CLARITY CLOUDY; TOTAL VOLUME 600 ml
[2019-02-01 08:46] LABS: BF LYMPHOCYTES 27 %; BF MONOCYTES 69 %; BF POLYS 4 %; BF TISSUE 9 /100 WBC; SOURCE THORACENTESIS
[2019-02-01 12:00] VITALS: BP 108/65
[2019-02-01 16:00] VITALS: BP 99/60
--- NOTE | 2019-02-01 17:09 | NUR ---
PATIENT PROGRESSING TOWARDS GOALS. PATIENT AOX4. UP WITH 1 AND WALKER. PATIENT IV LEAKING TODAY. REPLACED BY INFUSION NURSE. REMAINS ON IV FUROSEMIDE BID. PATIENT STATES SHE DOESN'T URINATE "A LOT". BLADDER PALPATED AND IS NOT DISTENDED. DENIES PAIN/NAUSEA. STATES SOA IS MUCH IMPROVED SINCE YESTERDAY'S THORACENTESIS. DENIES NEW CONCERNS ABOUT PATIENT CARE.
[2019-02-01 19:45] VITALS: BP 106/70
[2019-02-02] VITALS: BP 128/82
[2019-02-02 04:00] VITALS: BP 144/97
--- NOTE | 2019-02-02 05:16 | NUR ---
PT SLEPT FAIRLY WELL OVERNIGHT. ROOM AIR SAT 91%. PARRISH. BAND AID TO SITE OF R THORACENTESIS CDI. LFA SL. UP WITH WALKER TO BSC. AM LAB. SMALL AMOUNT ASCITES. AOX4, PLEASANT. ABLE TO USE CALL LITE AND MAKE NEEDS KNOWN. TELE AFIB. GI TO CONSULT.
[2019-02-02 08:00] VITALS: BP 156/98
[2019-02-02 08:43] LABS: ABSOLUTE BASOPHILS 0.1 thou/uL (0.0-0.2); ABSOLUTE EOSINOPHILS 0.2 thou/uL (0.0-0.7); ABSOLUTE LYMPHOCYTES 0.8 thou/uL (0.8-5.3); ABSOLUTE MONOCYTES 0.5 thou/uL (0.0-1.2); ABSOLUTE NEUTROPHILS 3.3 thou/uL (1.6-8.1); BASOPHILS 1.6 %; EOSINOPHILS 3.3 %; HEMATOCRIT 36.6 % (37.0-47.0); HEMOGLOBIN 12.3 gm/dL (12.0-15.0); LYMPHOCYTES 16.9 %; MCH 33.9 pg (26.0-34.0); MCHC 33.5 g/dL (28.0-37.0); MCV 101.1 fL (80.0-100.0); MONOCYTES 10.2 %; MPV 10.5 fl. (7.2-11.1); NUCLEATED RBCS 0 /100WBC; PLATELET COUNT* 94 thou/uL (150-400); RBC 3.62 mil/uL (4.20-5.00); RDW-CV 16.4 % (10.5-14.5); WBC 4.8 thou/uL (4.0-11.0)
[2019-02-02 08:56] LABS: APTT 36.3 Seconds (25.0-31.3); INR 1.4; PROTIME 14.3 Seconds (9.20-11.50)
--- NOTE | 2019-02-02 08:59 | CON ---
[address] [address] CONSULTATION Name: MONICA FOURNIER Room: [address] IN M.R.#: [id number] Admission: 01/30/19 Attend Phys: Rubin Ross MD Discharge: Date of : 34 Report #: [id number] THIS REPORT FOR: //name// CC: Rubin Townsend DO DATE OF SERVICE: 01/31/2019 CARDIOLOGY CONSULTATION HISTORY OF PRESENT ILLNESS: The patient admitted to the hospital with fluid retention and anasarca. She has pulmonary hypertension. By noninvasive studies, she has evidence of ascites, pleural effusions and pericardial effusion. She does not have tamponade. She has presumed acute on chronic diastolic heart failure. She has preserved left ventricular systolic function. She has severely dilated right and left atria. The right ventricle is mildly dilated and there is right ventricular hypertrophy. She has significant pulmonary hypertension on echocardiogram. The etiology of her pulmonary hypertension is not clear. It has been progressive. She has chronic atrial fibrillation and is adequately rate controlled. She has been anticoagulated without bleeding problems. PAST MEDICAL HISTORY: 1. Chronic atrial fibrillation. 2. Chronic diastolic heart failure. 3. Hypertension. 4. Hypothyroidism. 5. Neuropathy. PAST SURGICAL HISTORY: 1. Carpal tunnel release. 2. Cervical fusion. 3. Knee surgery. 4. Laminectomy. 5. Tonsillectomy. 6. Total hip arthroplasty. FAMILY HISTORY: The patient's mother had a stroke. SOCIAL HISTORY: The patient is a lifelong nonsmoker. She does not drink alcohol. HOME MEDICATIONS: Atenolol 50 mg p.o. q. day, Lutein 20 mg p.o. q. day, Zeaxanthin 2 mg daily, Neurontin 300 mg daily, Unicomplex M vitamins one tablet daily, magnesium oxide 400 mg daily, Cardura 2 mg daily, furosemide [place] [address] CONSULTATION Name: MONICA FOURNIER Room: [address]#: [id number] Admission: 01/30/19 Attend Phys: Rubin Ross MD Discharge: Date of : 34 Report #: [id number], fish oil 1000 mg daily, vitamin D with calcium 1 tablet daily, Zestril 20 mg b.i.d., Eliquis 5 mg b.i.d. REVIEW OF SYSTEMS: Positive for dyspnea on exertion. Positive for weight gain. Positive for leg swelling. Positive for nonproductive cough. Positive for occasional dizziness and lightheadedness. Positive for she wears glasses. Otherwise, 14-point review of systems unremarkable. PHYSICAL EXAMINATION: VITAL SIGNS: Blood pressure 159/101, pulse 77 and irregular. GENERAL: This is an elderly white female who does not appear to be in distress. HEENT: She is wearing glasses. Extraocular muscles intact. Mucous membranes are moist. NECK: Shows jugular venous distention. There are no carotid bruits. CHEST: Reveals diminished breath sounds in the bases. CARDIOVASCULAR: Reveals an irregularly irregular rhythm that is rate controlled. There is a 2/6 holosystolic murmur heard at the right lower sternal border. I do not appreciate obvious gallop. ABDOMEN: Reveals a protuberant abdomen with fluid wave consistent with ascites. EXTREMITIES: Shows 1+ pedal ankle and lower extremity edema to the knees bilaterally. SKIN: Dry. LABORATORY DATA: Labs are reviewed. Sodium 140, potassium 3.6, chloride 101, bicarbonate 33, BUN 18, creatinine 1.0. Serum glucose 95. AST 49, lipase 99, total bilirubin 1.2, calcium 9.1, magnesium 2.0, alkaline phosphatase 194, ALT 40, total protein 7.0, albumin 3.7. EGFR 53. Lactic acid 0.7. Total CPK 169. Troponin less than 0.06 on 3 separate occasions. NT-proBNP 2310. Protime 15.2, INR 1.5, APTT 35.8. White blood cell count 5.4, hemoglobin 12.5, platelet count 94,000. Chest x-ray shows cardiomegaly and bilateral pleural effusions. Echocardiogram shows severe pulmonary hypertension, severe biatrial enlargement, moderate pericardial effusion without evidence of tamponade, right ventricular hypertrophy, rdbqdimu-[id number] tricuspid insufficiency, mild aortic insufficiency and mild mitral insufficiency. IMPRESSION AND RECOMMENDATIONS: 1. Acute on chronic diastolic heart failure with severe pulmonary hypertension. Recommend aggressive diuresis at this point in time. Paracentesis and thoracentesis per primary physician and Interventional Radiology. Track daily I's and O's carefully. We will obtain a.m. labs to track renal function as well. 2. Hypertension. Blood pressure appears to be stable at this time. We will follow. [address] [address] CONSULTATION Name: MONICA FOURNIER Room: M.232-P ADM IN M.R.#: [id number] Admission: 01/30/19 Attend Phys: Rubin Ross MD Discharge: Date of : 34 Report #: [id number] 3. Chronic atrial fibrillation, rate adequately controlled. Holding anticoagulation for possible invasive procedures, resume as tolerated. <ELECTRONICALLY SIGNED> By: Geoffrey Del Castillo MD, FACC 02/02/19 0859 1505 [id number] Del Castillo MD, FACC /nt
[2019-02-02 09:07] LABS: ALBUMIN 3.4 g/dL (3.4-5.0); CALCIUM 8.9 mg/dL (8.5-10.1); POTASSIUM 3.5 mmol/L (3.5-5.1); TOTAL BILIRUBIN 1.4 mg/dL (<0.1-1.0); TOTAL PROTEIN 6.5 g/dL (6.4-8.2)
--- NOTE | 2019-02-02 11:25 | NUR ---
ASSUMED CARE OF PT AT 0730. PT RESTING AT EDGE OF BED FOR BREAKFAST. PT A&0X4, DENIES ANY PAIN OR SHORTNESS OF BREATH AT THIS TIME. PT TRACING AFIB ON THE FILM LIBRARIAN. ON RA SAT UPPER 90'S. PT DOES HAVE SHORTNESS OF BREATH WITH EXERTION. PT UP WITH 1 ASSIST AND WALKER TO BATHROOM. PT GOAL FOR TODAY IS CARDIO AND GI CONSULT IN PLACE, IV LASIX AND INCREASE ACTIVITY. AM ASSESSMENT CHARTED. MEDICATIONS PER SEP. PT REPOSITIONS SELF. HOURLY ROUNDING OBSERVED. BED IN LOW POSITION. CALL LIGHT WITHIN REACH. WILL CONTINUE PLAN OF CARE.
[2019-02-02 11:48] VITALS: BP 132/83
[2019-02-02 14:09] LABS: BODY FLUID AMYLASE 25 U/L (()); BODY FLUID LDH 113 IU/L (()); BODY FLUID PROTEIN 2.6 g/dL (())
[2019-02-02 15:10] LABS: BODY FLUID PH 7.6 (Not Estab.)
[2019-02-02 15:58] VITALS: BP 114/78
--- NOTE | 2019-02-02 16:24 | NUR ---
NO ACUTE CHANGES THROUGHOUT SHIFT. REFER TO CHARTING. PT DENIES ANY PAIN OR SHORTNESS OF BREATH THROUGHOUT AFTERNOON. PT SEEN BY GI. ORDERS RECEIVED FOR ADDITIONAL LABS. PT UP TO CHAIR FOR MEALS, WORKED WITH PT AND OT. TOLERATED WELL. PROGRESSING TOWARDS GOALS. GOOD URINE OUTPUT WITH IV LASIX. CONTINUES TO TRACE AFIB ON THE MAGAZINE PUBLISHER. RATE CONTROLLED IN THE 70'S. ON RA SAT UPPER 90'S. PT UP WITH 1 ASSIST AND WALKER TO BATHROOM. MEDICATIONS PER SEP. PT REPOSITIONS SELF. HOURLY ROUNDING OBSERVED. BED IN LOW POSITION. CALL LIGHT WITHIN REACH. WILL CONTINUE PLAN OF CARE.
[2019-02-02 20:38] VITALS: BP 130/77
[2019-02-03] VITALS: BP 134/80
[2019-02-03 02:06] LABS: HEPATITIS B SURFACE AG Negative (Negative)
[2019-02-03 04:00] VITALS: BP 141/88
[2019-02-03 04:50] LABS: ABSOLUTE BASOPHILS 0.1 thou/uL (0.0-0.2); ABSOLUTE EOSINOPHILS 0.1 thou/uL (0.0-0.7); ABSOLUTE LYMPHOCYTES 1.2 thou/uL (0.8-5.3); ABSOLUTE MONOCYTES 0.6 thou/uL (0.0-1.2); ABSOLUTE NEUTROPHILS 3.2 thou/uL (1.6-8.1); BASOPHILS 1.3 %; EOSINOPHILS 2.6 %; HEMATOCRIT 38.4 % (37.0-47.0); HEMOGLOBIN 12.8 gm/dL (12.0-15.0); LYMPHOCYTES 23.8 %; MCH 33.4 pg (26.0-34.0); MCHC 33.2 g/dL (28.0-37.0); MCV 100.5 fL (80.0-100.0); MONOCYTES 10.8 %; MPV 9.8 fl. (7.2-11.1); NUCLEATED RBCS 0 /100WBC; PLATELET COUNT* 100 thou/uL (150-400); POLYS 61.5 %; RBC 3.82 mil/uL (4.20-5.00); RDW-CV 16.2 % (10.5-14.5); WBC 5.1 thou/uL (4.0-11.0)
[2019-02-03 05:15] LABS: ALBUMIN 3.5 g/dL (3.4-5.0); CALCIUM 9.5 mg/dL (8.5-10.1); POTASSIUM 3.8 mmol/L (3.5-5.1); TOTAL BILIRUBIN 1.3 mg/dL (<0.1-1.0); TOTAL PROTEIN 6.7 g/dL (6.4-8.2)
--- NOTE | 2019-02-03 05:57 | NUR ---
PT IS ABLE TO COMMUNICATE HER NEEDS TO STAFF EFFECTIVELY. SHE HAS DENIED THE NEED FOR PAIN MEDICATION UP TO THIS TIME. POSSIBLE DISCHARGE TODAY.
[2019-02-03 08:00] VITALS: BP 150/86
--- NOTE | 2019-02-03 11:02 | NUR ---
ASSUMED PT CARE AT 0800, AOX4, UP SBA, USES WALKER. O2 SAT 90'S RA. PT DENIES PAIN, WANTS TO GO HOME TODAY. TRACING AFIB ON TELE. VSS, AM ASSESSMENT CHARTED. MEDS GIVEN PER MAR. HOURLY ROUNDING. WILL CONTINUE TO MONITOR.
[2019-02-03 11:50] VITALS: BP 106/67
--- NOTE | 2019-02-03 13:07 | PATH ---
[address] [address] PATHOLOGY RPT PROCEDURE Name: MONICA FOURNIER Room: [address] IN [facility]#: [id number] Admission: 01/30/19 Date of : 33 Discharge: Report #: [id number] Path Case #: [id number] Note [facility] Accession Number: [id number] TESTS RESULT FLAG UNITS REF RANGE LAB Clinician Provided Cytology Information No. of containers..01 Other (Miscellaneous) Source: RIGHT PLEURAL DIAGNOSIS: 02 RIGHT PLEURAL SCANT CELLULARITY WITH MESOTHELIAL CELLS AND FEW LYMPHOCYTES. THIS INTERPRETATION INCLUDES EVALUATION OF A CELL BLOCK. Signed out by: 02 Kalyan Downs MD, Pathologist NPI- [id number] Performed by: 01 Cole Osman, Loan Auditor ([facility]) Gross description: 01 27ML, RED, CLOUDY /LCS FLAG LEGEND: L-Low Normal,H-High Normal,LL-Alert Low,HH-Alert High <-Panic Low,>-Panic High,A-Abnormal,AA-Critical Abnormal Performed at: [address] [place] [address] Keyon Bartlett MD, [address] [address] Kalyan Downs MD, Specimen Comment: A duplicate report has been generated due to demographic updates. Performed at: [address], [place], [place] [id number] MD Keyon Bartlett MD Phone: [phone]
[2019-02-03 15:49] VITALS: BP 129/75
--- NOTE | 2019-02-03 18:30 | NUR ---
RECEIVED REPORT FROM ER, ADMISSION ASSESSMENT DONE. AOX4, SBA, O2 SAT 90'S 2L NC. DENIES PAIN. TELE IN PLACED TRACING SR, BBB ON MONITOR. IV ACCESS INTACT. PT ON CONTACT ISOLATION FOR HISTORY OF CDIFF. PT REPORTED LOOSE STOOL TODAY. ON HEART HEALTHY DIET. NPO MIDNIGHT. VSS, HOURLY ROUNDING, CALL LIGHT WITHIN REACH, WILL CONTINUE TO MONITOR.
[2019-02-03 19:10] LABS: IgA 305 mg/dL (64-422); IgG 904 mg/dL (700-1600)
[2019-02-03 20:34] VITALS: BP 119/73
[2019-02-04] VITALS: BP 110/83
[2019-02-04 04:00] VITALS: BP 139/80
[2019-02-04 05:04] LABS: CALCIUM 9.4 mg/dL (8.5-10.1); CREATININE 1.2 mg/dL (0.6-1.3); MAGNESIUM 1.7 mg/dL (1.8-2.4); POTASSIUM 3.5 mmol/L (3.5-5.1)
--- NOTE | 2019-02-04 05:36 | NUR ---
PT IS ABLE TO COMMUNICATE HER NEEDS TO STAFF EFFECTIVELY. SHE HAS DENIED THE NEED FOR PAIN MEDICATION UP TO THIS TIME. PT RECEIVED LASIX LATE 02/03 AFTERNOON AND HAS HAD FREQUENT URINATION DURING THIS SHIFT. POSSIBLE DISCHARGE TODAY.
[2019-02-04 08:00] VITALS: BP 147/90
[2019-02-04 08:54] VITALS: BP 147/90
[2019-02-04] MEDS ORDERED: LEVOTHYROXINE137 MCG PO (09:59)
[2019-02-04] MEDS ORDERED: SPIRONOLACTONE25 MG PO (09:59)
[2019-02-04] MEDS ORDERED: METOLAZONE 5 MG5 MG PO (09:59)
[2019-02-04] MEDS ORDERED: LASIX 80 MG TAB80 MG PO (09:59)
--- NOTE | 2019-02-04 10:48 | NUR ---
ASSUMED PT CARE AT O800, AOX4, SBA WITH WALKER, O2 SAT 90'S RA. TRACING AFIB ON TELE. PT FOR DISCHARGE TODAY. DENIES PAIN. VSS, AM ASSESSMENT CHARTED. MEDS GIVEN PER MAR. HOURLY ROUNDING. WILL CONTINUE TO MONITOR.
[2019-02-04] MEDS ORDERED: ATENOLOL 100MG100 MG PO (11:08)
--- NOTE | 2019-02-04 13:30 | NUR ---
DISCHARGED PLAN DISCUSSED WITH THE PATIENT AND SON. MEDICATION PACKET/SCRIPT GIVEN. IV, TELE REMOVED, REMINDED TO FOLLOW UP WITH CARDIOLOGY, PCP. HAVE BNP IN 1 WEEK. ALL BELONGINGS PACKED AND CHECKED. LEFT THE UNIT VIA WHEELCHAIR AT 1300
[2019-02-05 13:22] LABS: SOURCE THORACENTESIS
[2019-02-06 10:06] LABS: ANA INTERPRETATION Negative (Negative)
== END 2019-02-04 13:33 | disposition home health service (06) | DRG 441 ==
LOC: M.TBA-ER 18:09 → M.2W 18:09
PROVIDERS: Family Medicine; Internal Medicine Cardiovascular Disease; Nurse Practitioner Adult Health; Nurse Practitioner Family; ADMIT Internal Medicine
PROC: 0W993ZZ Drainage of Right Pleural Cavity, Percutaneous Approach (ICD-10-PCS; principal; 2019-01-31)
DX: K72.00 Acute and subacute hepatic failure without coma (principal); I50.33 Acute on chronic diastolic (congestive) heart failure; I13.0 Hypertensive heart and chronic kidney disease with heart failure and stage 1 through stage 4 chronic kidney disease, or unspecified chronic kidney disease; R18.8 Other ascites; I31.3 Pericardial effusion (noninflammatory); J91.8 Pleural effusion in other conditions classified elsewhere; N18.3 Chronic kidney disease, stage 3 (moderate); E03.9 Hypothyroidism, unspecified; I48.2 Chronic atrial fibrillation; G62.9 Polyneuropathy, unspecified; K76.0 Fatty (change of) liver, not elsewhere classified; D69.6 Thrombocytopenia, unspecified; M19.90 Unspecified osteoarthritis, unspecified site; I27.22 Pulmonary hypertension due to left heart disease; Z96.653 Presence of artificial knee joint, bilateral; Z96.643 Presence of artificial hip joint, bilateral; I36.1 Nonrheumatic tricuspid (valve) insufficiency; Z79.01 Long term (current) use of anticoagulants; Z79.899 Other long term (current) drug therapy; Z98.42 Cataract extraction status, left eye; Z91.048 Other nonmedicinal substance allergy status; Z98.41 Cataract extraction status, right eye; Z85.22 Personal history of malignant neoplasm of nasal cavities, middle ear, and accessory sinuses; Z98.1 Arthrodesis status; Z82.3 Family history of stroke

== ENCOUNTER → 2019-01-30 | Outpatient (CLI) | payer OTHER ==
[~2019-01-30] MED LIST changes: +ATENOLOL 50MG T50 M1 PO; +NATURAL LUTEIN20 MG PO; +ZEAXANTHIN100 GM
== END ==
LOC: M.RAD 01-10 08:56
DX: N64.89 Other specified disorders of breast (principal)

== ENCOUNTER → 2019-08-16 | Outpatient (CLI) | payer OTHER ==
[~2019-08-16] MED LIST changes: +ATENOLOL 50MG T50 M1 PO; +LASIX 80 MG TAB80 MG PO; +LEVOTHYROXINE137 MCG PO; +METOLAZONE 5 MG5 MG PO; +NATURAL LUTEIN20 MG PO; +SPIRONOLACTONE25 MG PO; +ZEAXANTHIN100 GM
[2019-08-16 10:52] LABS: ABSOLUTE BASOPHILS 0.1 thou/uL (0.0-0.2); ABSOLUTE EOSINOPHILS 0.2 thou/uL (0.0-0.7); ABSOLUTE MONOCYTES 0.6 thou/uL (0.0-1.2); ABSOLUTE NEUTROPHILS 3.1 thou/uL (1.6-8.1); BASOPHILS 1.8 %; EOSINOPHILS 3.1 %; HEMATOCRIT 39.5 % (37.0-47.0); HEMOGLOBIN 13.4 gm/dL (12.0-15.0); LYMPHOCYTES 21.2 %; MCH 35.4 pg (26.0-34.0); MCV 104.2 fL (80.0-100.0); MONOCYTES 12.2 %; MPV 8.7 fl. (7.2-11.1); NUCLEATED RBCS 0 /100WBC; PLATELET COUNT* 109 thou/uL (150-400); POLYS 61.7 %; RBC 3.79 mil/uL (4.20-5.00); RDW-CV 15.7 % (10.5-14.5)
[2019-08-16 10:59] LABS: INR 1.3; PROTIME 12.9 Seconds (9.20-11.50)
[2019-08-16 11:04] LABS: ALBUMIN 3.6 g/dL (3.4-5.0); CALCIUM 9.5 mg/dL (8.5-10.1); CREATININE 0.9 mg/dL (0.6-1.3); POTASSIUM 4.2 mmol/L (3.5-5.1); TOTAL BILIRUBIN 1.7 mg/dL (<0.1-1.0); TOTAL PROTEIN 6.9 g/dL (6.4-8.2)
== END ==
LOC: M.ULTRA 10:24
PROVIDERS: Internal Medicine Gastroenterology
DX: K74.60 Unspecified cirrhosis of liver (principal)